=== PATIENT | female | born 1980 | race Two or more races ===

== ENCOUNTER 2024-06-11 09:59 | Outpatient (AMB) | payer MEDICAID, SELFPAY ==
[2024-06-11 10:08] VITALS: BP 126/85; PULSE 87; RESP 19; TEMP 36.8; O2SAT 98; BMI 27.4
--- NOTE | 2024-06-11 10:08 | PD.GSCLVISIT ---
Vital Signs - [facility] 06/11/24 10:08 Height 1.5 m Height Method Stated Weight 61.717 kg Weight Measurement Method Standing Scale BMI 27.4 BP 126/85 H Blood Pressure Source Automatic Cuff Blood Pressure Location Left Upper Arm Position Sitting Respiration 19 Pulse 87 Pulse Source Monitor Temp 98.2 F Temp Source Temporal Artery Scan Pulse Oximetry (%) 98 Oxygen Delivery Method Room Air Med/Allergies Allergies & Medications Allergies No Known Allergies Allergy (Verified 06/11/24 10:10) Medication Reconciliation Unobtainable 06/11/24 [History Confirmed 06/11/24] MA Intake Visit Data Collection New Patient or Established: New Patient (never been to [facility]) Seen by Clinical Staff ONLY (RN/MA): No Reason for Visit:: HEMORRHOIDS Pain Present Currently: No Pain scale:: 4 Field Pipelines Supervisor Required: Yes PCP or OBGYN visit in last 3 months: Yes Hx Now: No Do You Feel Safe at Home: Yes Authorities Contacted: N/A Smoking Status Smoking Status: Never smoker Immunization / Flu Flu Vaccine in the Last 12 Months: No Flu Vaccine Exclusion Criteria: Refused by Patient Past Medical History Social History SMOKING STATUS: Smoking status: Never smoker HPI HPI Narrative 44F presenting with symptomatic hemorrhoids. Pt reports she has had symptoms since last year, with pain, bleeding, and tenesmus. She states her BMs tend to be soft without straining, she uses colace and miralax daily and drinks about 4 bottles of water daily (feels that she has to urinate too much when she drinks more). Pt does state she sometimes has pencil thin stools, but denies any abdominal pain, anorexia and unintentional weight loss. She has uses hydrocortisone suppositories, preparation H and sitz baths, woith some improvement but she still overall feels the symptoms are very bothersome. She has not yet had a colonoscopy PMH: HTN, hemorrhoids PSHx: Csection Meds: Colace, miralax, lisinopril-HCTZ, phentermine and metformin for weight loss Allergies: NKDA Social hx: Nonsmoker Family hx: No known malignancies ROS Review of Systems Systems Reviewed: All systems reviewed, normal except as documented Objective/Exam General General Appearance: alert, cooperative and well groomed Resp Respiratory exam: Absent respiratory distress Rectal Rectal exam: Present hemorrhoids (external hemorrhoids. MALA no mass palpated, anoscopy not tolerated) Assessment & Plan Diagnosis / Problem List (1) Hemorrhoids with complication: Status: Acute Assessment & Plan: 44F with symptomatic hemorrhoids refractory to conservative management. Given the degree of her symptoms after using numerous remedies I explained that surgery is reasonable; I explained risks including severe pain, difficulty urinating, and hemorrhoid persistence/recurrence. Also because of her changes in bowel habits I recommended colonoscopy simultaneously and explained benefits/risks including bleeding, perforation requiring emergency surgery and the possibility of aborting for safety. 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
== END 2024-06-11 11:03 | disposition home or self-care (01) ==
LOC: HODSRG 09:59
PROVIDERS: PCP Nurse Practitioner Family; Referring Provider Nurse Practitioner Family; Supervising Provider Surgery; Visit Provider Surgery
DX: K64.8 Other hemorrhoids (principal)
CPT/HCPCS: 99203; G0463

== ENCOUNTER 2024-07-01 05:35 | Day surgery (SDC) | payer MEDICAID, SELFPAY ==
[2024-06-30 09:48] VITALS: BMI 27.6
--- NOTE | 2024-06-30 10:19 | EKG_ITS ---
[facility] Test Date: 2024-06-30 Pat Name: SEAN HEART Department: Room: - Gender: Female Manager Programs: RD : 1980 Requested By: Blake Forbes Order Number: [id number] Reading MD: Blake Forbes Measurements Intervals [place] Rate: 75 P: 54 WA: 158 QRS: 29 QRSD: 89 T: 47 QT: 359 QTc: 403 Interpretive Statements SINUS RHYTHM POSSIBLE LEFT ATRIAL ENLARGEMENT POSSIBLE RIGHT VENTRICULAR CONDUCTION DELAY SEPTAL MYOCARDIAL INFARCTION , OF INDETERMINATE AGE No previous ECG available for comparison /[id number]/[id number]
[2024-06-30 12:36] LABS: Basophils # (Auto) 0.1 Thou/mm3 (0.0-0.2); Basophils % (Auto) 1 % (0-2.5); Eosinophils # (Auto) 0.1 Thou/mm3 (0.0-0.5); Eosinophils % (Auto) 1 % (0-10); Hematocrit 36.4 % (36.0-46.0); Hemoglobin 12.1 g/dL (12.0-16.0); Immature Granulocytes % (Auto) 0 % (0-0); Immature Granulocytes Auto 0.01 Thou/mm3 (0.00-0.00); Lymphocytes # (Auto) 2.1 Thou/mm3 (1.0-4.8); Lymphocytes % (Auto) 31 % (10-50); Mean Corpuscular HGB Conc 33.2 g/dl (31.0-37.0); Mean Corpuscular Hemoglobin 29.7 pg (25.0-35.0); Mean Corpuscular Volume 89 fL (80-100); Monocytes # (Auto) 0.5 Thou/mm3 (0.0-0.8); Monocytes % (Auto) 7 % (0-12); Neutrophils # (Auto) 4.1 Thou/mm3 (1.8-7.7); Neutrophils % (Auto) 60 % (37-80); Nucleated Red Blood Cell % 0 /100 WBC (0); Platelet Count 330 Thou/mm3 (140-440); RDW Standard Deviation 45.1 fL (36.4-46.3); Red Blood Count 4.07 Miln/mm3 (4.00-5.20); White Blood Count 6.8 Thou/mm3 (3.6-11.0)
[2024-06-30 12:45] LABS: Alanine Aminotransferase 11 U/L (10-49); Albumin, Serum 4.7 gm/dL (3.5-5.0); Albumin/Globulin Ratio 1.7 (1.2-2.2); Alkaline Phosphatase 78 U/L (46-116); Anion Gap 4 (7-16); Aspartate Amino Transferase 18 U/L (0-34); BUN/Creatinine Ratio 21 Ratio (12-20); Bilirubin,Total 0.3 mg/dL (0.3-1.2); Blood Urea Nitrogen 15 mg/dL (9-23); Carbon Dioxide 30.1 mMol/L (20.0-31.0); Chloride 105 mMol/L (98-107); Creatinine (Component) 0.7 mg/dL (0.6-1.3); Estimated Creatinine Clearance 83.1 mL/min (>60); Globulin 2.7 gm/dL (2.3-3.5); Glucose 102 mg/dL (74-106); Osmolality,Calculated 278 (275-295); Sodium 139 mMol/L (136-145); Total Protein 7.4 gm/dL (5.7-8.2); eGFR > 60 See Note
[2024-06-30 12:52] LABS: INR 0.9 (0.9-1.3); Partial Thromboplastin Time 25.9 Seconds (22.0-36.0); Prothrombin Time 10.4 Seconds (9.0-12.2)
[2024-07-01] VITALS (20 sets, daily range): BP systolic 83–114; BP diastolic 52–81; PULSE 58–84; RESP 12–20; TEMP 36.1–36.4; O2SAT 97–100; BMI 27.3
[2024-07-01] MEDS: RINGERS LACTATED 1000 ML 1,000 ML 20 ML IV (06:39)
--- NOTE | 2024-07-01 09:02 | ESOP_ITS ---
Date of Procedure 07/01/24 Pre Op Diagnosis Symptomatic hemorrhoids Post Op Diagnosis Same Procedure Transanal hemorrhoidal dearterialization Findings Internal and external hemorrhoids Procedure Description After discussion of risks and benefits, pt was brought to OR, SCDs were placed and general anesthesia was induced with LMA. After timeout pt first underwent colonoscopy which was dictated separately. After colonoscopy pt was transferred to OR table in lithotomy position with proper padding and was prepped and draped in the usual sterile fashion. THD was undertaken at the 1, 3, 5, 7, 9 and 11 o' clock positions. For the external hemorrhoids pt also had mucopexy performed at the 3, 5 and 7 o' clock positions. Left and right pudendal nerve blocks were performed as well as a local block with 30cc of 0.5% marcaine. There was no bleeding at the end of the case. Pt was returned to supine position and extubated without complication. She was brought to PACU in stable condition Pathology / specimen None Estimated Blood Loss 25 Surgeon Aracelis Arellano MD Surgical Staff Operation Date: 07/01/24 07:30 Case Staff CUE WORKER: Lele Lombardi RNoperations representative: Perla Case
--- NOTE | 2024-07-01 09:03 | SUR.PHASEI ---
0903: Pt. arrived with oral airway in place, vitals stable, breathing unlabored, no signs of distress, dressing to rectum CDI, no active bleed noted, report received from Lele TIMMONS and Delfin VERMA.
--- NOTE | 2024-07-01 09:07 | ESDS_ITS ---
Planned Discharge Date 07/01/24 DS: Providers Provider Primary care physician: KATELYN Austin Attending Provider on Admission: Aracelis Arellano MD Attending Provider on DC: Aracelis Arellano MD Discharging Provider: Aracelis Arellano MD Diagnosis Discharge Diagnosis (1) Hemorrhoids with complication: Status: Acute Problem List Completed Was Problem List Reviewed/Reconciled?: Yes Hospital Course Patient presented with symptomatic hemorrhoids for planned colonoscopy and THD. Both procedures were undertaken without complication and patient is appropriate for discharge home Exam Vital Signs Temp Pulse Resp BP Pulse Ox 97.4 F 74 14 114/75 100 07/01/24 06:30 07/01/24 06:30 07/01/24 06:30 07/01/24 06:30 07/01/24 06:30 Discharge Plan Plan Patient Disposition: HOME (Self Care) Prescriptions/Referrals Prescriptions/Med Rec: New oxycodone-acetaminophen [Percocet] 5-325 mg tablet 1 tab PO Q6H MDD 6 tabs PRN (Reason: pain) Qty: 30 0RF ibuprofen 600 mg tablet 600 mg PO Q6H PRN (Reason: pain) Qty: 30 0RF docusate sodium [Colace] 100 mg capsule 100 mg PO BID PRN (Reason: constipation) Qty: 60 0RF No Action polyethylene glycol 3350 [Powderlax] 17 gram/dose powder 4 g PO QDAY lisinopril-hydrochlorothiazide [Zestoretic] 20-25 mg tablet 1 tab PO QDAY naproxen 500 mg tablet 500 mg PO Q12H PRN (Reason: pain) docusate sodium 100 mg capsule 100 mg PO QDAY omega-3 fatty acids Capsule 1,000 mg PO QDAY hydrocodone-acetaminophen 5-325 mg tablet 1 tab PO Q6H PRN (Reason: pain) metformin 500 mg tablet 500 mg PO BID phentermine 37.5 mg capsule 37.5 mg PO QAM Rx Instructions: must administer 30 minutes before or 1-2 hours after breakfast Referrals: Aracelis Arellano MD [Physician] - (You will receive a phone call to confirm a follow-up appointment with me in 6 weeks) Janel Simms FNP [Primary Care Provider] - Patient/Caregiver Discharge Instructions Other Discharge Activity Instructions:: You may resume sitz baths as needed tomorrow 07/02 Avoid constipation and diarrhea Drink plenty of water and maintain a high-fiber diet I recommend taking the Percocet and ibuprofen staggered every 6 hours so that you are taking one of them every 3 hours, if needed for severe pain If you develop severe pain not controlled by medications, bleeding that does not stop, fever or difficulty urinating please seek care in ER Education Materials: Colonoscopy, Discharge Instructions for ... Print Language: Kinyarwanda Stand Alone Forms: Jessy Award Info., Patient Portal Info Letter Discharge Order Discharge Orders: Discharge (Routine); Ordered 07/01/24 Ordered By: Aracelis Arellano Results Results: Laboratory Laboratory results: results reviewed Procedures Procedure Date 07/01/24 Procedures Diagnostic colonoscopy, transanal hemorrhoidal dearterialization
[2024-07-01] MEDS: fentaNYL CIT INJ 50 mCg/ML AMP 2ML IV ×3 (09:11→09:29)
[2024-07-01] MEDS: TAMSULOSIN HCL 0.4 MG CAPSULE PO (09:29)
[2024-07-01] MEDS: HYDROmorphone INJ 2 MG/ML VIAL 0.5 MG IV (09:52)
--- NOTE | 2024-07-01 10:26 | SUR.PHASEII ---
Pt. Hypotensive, notified Lele TIMMONS. Per Lele TIMMONS give pt. 500ml bolus of LR, hold off on pain medications until he comes and assess pt. Also waiting for pt. to void, per MD Arellano, don't send pt. home until she voids.
[2024-07-01] MEDS: oxyCODONE/APAP 5/325 TABLET 1 TAB PO ×2 (11:03→14:53)
--- NOTE | 2024-07-01 12:42 | SUR.PHASEII ---
1235 patient is awake, alert, breathing unlabored, dressing dry with no active bleeding, report received from Farnaz VERMA, patient needs to void before going home.
--- NOTE | 2024-07-01 13:12 | SUR.PHASEII ---
1312 patient ambulated to bathroom unable to void at this time, report given to Farnaz VERMA
--- NOTE | 2024-07-01 15:00 | SUR.PHASEII ---
1500: Pt. AAOx4, vitals stable, breathing unlabored, complaint of pain, gave pain medication prior to DC. Dressing to rectum CDI, no active bleed noted, pt. tolerated sips of water well, pt. ambulated to wheelchair with steady gait and no assist, no complications. Gave discharge instructions to the pt. and her ride, both verbalized understanding and had no further questions. Pt. left with all personal belongings. Pt. was unable to void on her own, notified MD Arellano, per MD Arellano straight cath the pt. and send home. Pt. tolerated straight cath well, 300ml of clear yellow urine drained. Advised pt. that if she is still unable to urinate at home, go to the ER for carrillo catheter per MD Monroy instructions. Pt. verbalized understanding.
== END 2024-07-01 15:00 | disposition home or self-care (01) ==
PROVIDERS: Anesthesiology; PCP Nurse Practitioner Family; Referring Provider Surgery; Visit Provider Surgery
PROC: (CPT 46948; principal; 2024-07-01 07:30)
PROC: 0DJD8ZZ Inspection of Lower Intestinal Tract, Via Natural or Artificial Opening Endoscopic (ICD-10-PCS; CPT 45378; 2024-07-01 07:30)
DX: K64.8 Other hemorrhoids (principal); K64.4 Residual hemorrhoidal skin tags; Z01.810 Encounter for preprocedural cardiovascular examination
CPT/HCPCS: 45378; 36415; 80048; 80053; 85025; 85610; 85730; 93005; A4217; A4649; J0131; J1885; J2371; J2704; J3010; J3490; J7120; A9270; J1596

== ENCOUNTER 2024-07-12 13:51 | Day surgery (SDC) | payer MEDICAID, SELFPAY ==
[2024-07-12 13:53] VITALS: BMI 27.2
[2024-07-12 14:25] VITALS: BP 102/70; PULSE 93; RESP 18; TEMP 36.8; O2SAT 96
--- NOTE | 2024-07-12 14:31 | XR_ITS ---
Examination: CT abdomen and pelvis without contrast. Coronal 3-D reconstructions. Sagittal 2-D reconstructions. Date and time of exam:July 12, 2024 1519 hrs. Indications: Onset rectal bleeding today and beginning 3 days ago CTDI: vol (mGy): 6.31 DLP: (mGycm): 356 Technique: Axial images of the abdomen have been obtained, 3 mm slice thickness Intravenous contrast material has not been administered. Low dose protocols were performed. One or more of the following dose reduction techniques were used; automated exposure control, adjustment of the mA and/or KV according to patient size, use of iterative reconstruction technique. Findings: No focal liver or splenic lesions Contracted gallbladder No pancreatic or adrenal mass No renal or ureteral calculi, no hydronephrosis 24 mm fat-containing umbilical hernia Aorta normal size Normal appendix No diverticulitis Abundant stool in the rectum with thickening the rectal wall Mild thickening of the urinary bladder wall Impression: Abundant stool in the rectum with thickening of the rectal wall, differential would include proctitis If rectal bleeding persists, consider colonoscopy follow-up
--- NOTE | 2024-07-12 14:32 | PD.EDRME ---
Rapid Medical Screening Exam E Arrival date/time: 07/12/24 13:51 44-year-old female with history of hypertension presents to the emergency room with a chief complaint of 10 out of 10 rectal pain. Patient states she had a colonoscopy as well as hemorrhoidectomy on 01 July. Patient states as of 3 days ago she began developing severe pelvic pain and blood in the stool. I have greeted and performed a focused initial assessment of this patient. A comprehensive ED assessment and evaluation of the patient, analysis of all test results, and completion of the medical decision making process will be conducted by additional ED providers. Chief Complaint: Urogenital-Female Vital signs: Vital Signs Temperature 98.2 F 07/12/24 14:25 Pulse Rate 93 07/12/24 14:25 Respiratory Rate 18 07/12/24 14:25 Blood Pressure 102/70 07/12/24 14:25 Pulse Oximetry (%) 96 07/12/24 14:25 Oxygen Delivery Method Room Air 07/12/24 14:25 Vital signs reviewed by provider: Yes
[2024-07-12 14:55] LABS: Collection Type, Urine Clean Catch
[2024-07-12 15:19] LABS: Bacteria,Urine 2+; Bilirubin,Urine Negative (Negative); Blood,Urine Trace (Negative); Clarity,Urine Turbid (Clear/Hazy); Glucose, Urine Negative (Negative); Ketones,Urine Negative (Negative); Leukocyte Esterase,Urine Positive (Negative); Nitrite,Urine Positive (Negative); Protein,Urine Trace (Neg - Trace); RBC,Urine 7 /hpf (0-3); Specific Gravity,Urine 1.012 (1.001-1.035); Squamous Epithelial Cell,Urine 6 /hpf (0-5); Transitional Epi Cells,Urine < 1 /hpf (0-5); Urobilinogen,Urine Negative mg/dL (0.0-1.0); WBC,Urine 553 /hpf (0-5)
[2024-07-12 15:20] LABS: Color,Urine Yellow (Lt Yel-Yel); Culture Indicated,Urine Yes
[2024-07-12] MEDS: HYDROcodone/APAP 5/325 TABLET 1 TAB PO (15:57)
[2024-07-12 15:59] LABS: Basophils % (Auto) 0 % (0-2.5); Eosinophils # (Auto) 0.1 Thou/mm3 (0.0-0.5); Eosinophils % (Auto) 1 % (0-10); Hematocrit 34.7 % (36.0-46.0); Hemoglobin 11.5 g/dL (12.0-16.0); Immature Granulocytes % (Auto) 0 % (0-0); Immature Granulocytes Auto 0.05 Thou/mm3 (0.00-0.00); Lymphocytes # (Auto) 1.8 Thou/mm3 (1.0-4.8); Lymphocytes % (Auto) 15 % (10-50); Mean Corpuscular HGB Conc 33.1 g/dl (31.0-37.0); Mean Corpuscular Hemoglobin 29.1 pg (25.0-35.0); Mean Corpuscular Volume 88 fL (80-100); Monocytes # (Auto) 0.7 Thou/mm3 (0.0-0.8); Monocytes % (Auto) 6 % (0-12); Neutrophils # (Auto) 9.6 Thou/mm3 (1.8-7.7); Neutrophils % (Auto) 78 % (37-80); Nucleated Red Blood Cell % 0 /100 WBC (0); Platelet Count 507 Thou/mm3 (140-440); RDW Standard Deviation 43.4 fL (36.4-46.3); Red Blood Count 3.95 Miln/mm3 (4.00-5.20); White Blood Count 12.3 Thou/mm3 (3.6-11.0)
[2024-07-12 16:10] LABS: Partial Thromboplastin Time 25.1 Seconds (22.0-36.0); Prothrombin Time 11.2 Seconds (9.0-12.2)
[2024-07-12 16:13] LABS: Alanine Aminotransferase 19 U/L (10-49); Albumin, Serum 4.7 gm/dL (3.5-5.0); Albumin/Globulin Ratio 1.6 (1.2-2.2); Alkaline Phosphatase 87 U/L (46-116); Anion Gap 10 (7-16); Aspartate Amino Transferase 13 U/L (0-34); BUN/Creatinine Ratio 23 Ratio (12-20); Bilirubin,Total 0.3 mg/dL (0.3-1.2); Blood Urea Nitrogen 16 mg/dL (9-23); Calcium 9.8 mg/dL (8.3-10.6); Calcium (Corrected) 9.8 mg/dL (8.5-10.1); Carbon Dioxide 26.3 mMol/L (20.0-31.0); Chloride 103 mMol/L (98-107); Creatinine (Component) 0.7 mg/dL (0.6-1.3); Estimated Creatinine Clearance 82.5 mL/min (>60); Glucose 118 mg/dL (74-106); Osmolality,Calculated 279 (275-295); Potassium 4.2 mMol/L (3.4-5.1); Sodium 139 mMol/L (136-145); Total Protein 7.7 gm/dL (5.7-8.2); eGFR > 60 See Note
[2024-07-12 16:19] VITALS: BP 109/73; PULSE 87; RESP 16; TEMP 36.8; O2SAT 99
--- NOTE | 2024-07-12 18:11 | PC.NURSE ---
pt here with at bedside pt came in due to rectal pain, swelling, pt states she is passing blood with BM as well as clots and its has a foul smell. 07/01/2024 pt had hemorrhoid removal with colonoscopy. pt states pain and bleeding started 07/10/2024. pt is AAOX4 pt is compliant pt states she is in pain and is in tears. laying on her side.
[2024-07-12 18:15] VITALS: BP 109/71; PULSE 76; RESP 17; TEMP 36.9; O2SAT 100
--- NOTE | 2024-07-12 18:42 | PD.EDADULT ---
ED General RME/HPI General Chief complaint: General Adult/Misc Complain Stated complaint: Colonoscopy/surgery 07/01: Pain, Bleeding today Time Seen by Provider: 07/12/24 18:47 Source: patient Arrival date/time: 07/12/24 13:51 Mode of arrival: ambulatory Limitations: no limitations RME / HPI RME / HPI narrative: 07/12/24 13:51 44-year-old female with history of hypertension presents to the emergency room with a chief complaint of 10 out of 10 rectal pain. Patient states she had a colonoscopy as well as hemorrhoidectomy on 01 July. Patient states as of 3 days ago she began developing severe pelvic pain and blood in the stool. I have greeted and performed a focused initial assessment of this patient. A comprehensive ED assessment and evaluation of the patient, analysis of all test results, and completion of the medical decision making process will be conducted by additional ED providers. DR RODRIGUEZ MAIN ED EVALUATION: 44-year-old female with a history of hypertension, presenting to the Emergency Department with severe rectal pain, rated 10/10 in intensity. She reports that she underwent a colonoscopy and hemorrhoidectomy on July 01, and initially, her recovery was uneventful. However, approximately three days ago, she began experiencing severe rectal pain accompanied by blood in the stool. Related Data Home Medications ?Medication ?Instructions ?Recorded ?Confirmed docusate sodium 100 mg capsule 100 mg PO QDAY 06/30/24 07/01/24 hydrocodone 5 mg-acetaminophen 325 1 tab PO Q6H PRN pain 06/30/24 07/01/24 mg tablet lisinopril 20 1 tab PO QDAY 06/30/24 07/01/24 mg-hydrochlorothiazide 25 mg tablet (Zestoretic) metformin 500 mg tablet 500 mg PO BID 06/30/24 07/01/24 naproxen 500 mg tablet 500 mg PO Q12H PRN pain 06/30/24 07/01/24 omega-3 fatty acids 1,000 mg PO QDAY 06/30/24 07/01/24 phentermine 37.5 mg capsule 37.5 mg PO QAM 06/30/24 07/01/24 polyethylene glycol 3350 17 4 g PO QDAY 06/30/24 07/01/24 gram/dose oral powder (Powderlax) Previous Rx's ?Medication ?Instructions ?Recorded docusate sodium 100 mg capsule 100 mg PO BID PRN constipation #60 07/01/24 (Colace) caps ibuprofen 600 mg tablet 600 mg PO Q6H PRN pain #30 tabs 07/01/24 oxycodone-acetaminophen 5 mg-325 1 tab PO Q6H PRN pain #30 tabs 07/01/24 mg tablet (Percocet) amoxicillin 875 mg-potassium 1 tab PO BID perianal abscess #8 07/13/24 clavulanate 125 mg tablet tabs oxycodone-acetaminophen 5 mg-325 1 tab PO Q6H PRN pain #30 tabs 25 mg tablet (Percocet) Allergies Allergy/AdvReac Type Severity Reaction Status Date / Time No Known Allergies Allergy Verified 07/01/24 12:41 Review of Systems Review of Systems Systems Reviewed: All systems reviewed, normal except as documented Past Medical History Past Medical History NEUROLOGIC: Negative Neurological Disorders or Seizures CARDIAC: Positive Cardiac Disorders and Hypertension; Negative Congestive Heart Failure RESPIRATORY: Negative Chronic Obstructive Pulmonary Disease (COPD) GASTROINTESTINAL: Positive Gastrointestinal Disorders and Hemorrhoids; Negative Hepatitis GENITOURINARY: Negative Genitourinary Disorders or Renal Disease REPRODUCTIVE: Positive Previous Pregnancies (5) MUSCULOSKELETAL: Negative Musculoskeletal Disorders ENDOCRINE: Negative Endocrine Disorders, Diabetes Mellitus Type 1 or Diabetes Mellitus Type 2 HEMATOLOGIC: Negative Blood Disorders OTHER HISTORY: Positive Hospitalization (); Negative Autoimmune Disease, Shingles, Blood Transfusions, Blood Transfusion Reaction, Anesthesia Reactions or Cancer Family History FAMILY HISTORY: Positive Family Cardiac Disorders; Negative Family Psychiatric Problems, Family Respiratory Disorders, Family Gastrointestinal Problems, Family Cancer, Family Surgery or Family Anesthesia Reaction Surgical History SURGICAL: Positive Tubal Ligation and Section (5) Social History SMOKING STATUS: Never smoker ED Exam Narrative Physical exam: GENERAL APPEARANCE: alert and oriented x 4, well-developed, well-nourished, no acute distress VITALS: All vitals were reviewed and the pulse ox is 100% on room air, which is normal according to my interpretation. HEENT: Normocephalic, atraumatic; pupils equal, round, reactive to light; EOMI; mucous membranes pink, moist; oropharynx clear NECK: Supple LUNGS: CTABL; no wheezes, no rales, no rhonchi HEART: Regular rate, regular rhythm; normal S1, S2; no murmurs ABDOMEN: non distended; normal BS; soft, no tenderness, no guarding, no rebound; no masses, no organomegaly, no hernia BACK: no CVA tenderness EXTREMITIES: atraumatic; no edema NEUROLOGIC: awake; alert and oriented x4; cranial nerves II-XII grossly intact; no focal sensory or motor deficits PSYCHIATRIC: appropriate mood and affect SKIN: warm, dry, normal color; no rashes General Limitations: Present no limitations Course Quality Measures none Orders Category Date Time Status CT abdomen pelvis wo con Stat Exams 07/12/24 14:31 Completed CBC Stat Lab 07/12/24 14:52 Completed CMP [Comprehensive Metabolic Panel] Stat Lab 07/12/24 14:52 Completed PT [Prothrombin Time with INR] Stat Lab 07/12/24 14:52 Completed PTT [Partial Thromboplastin Time] Stat Lab 07/12/24 14:52 Completed Type and Screen Stat Lab 07/12/24 14:52 Completed UA, C/S IF [Urinalysis, C/S if Indicated] Stat Lab 07/12/24 14:49 Completed Urine Culture Stat Lab 07/12/24 14:49 Received HYDROcodone*/APAP 5/325 [[place] 5/325] Med 07/12/24 15:36 Discontinued 1 tab PO X1 ONE HYDROmorphone INJ [Dilaudid Inj] Med 07/13/24 04:47 Discontinued 1 mg IVP X1 ONE Lidocaine 2% Viscous [Xylocaine 2% Viscous] Med 07/12/24 18:35 Discontinued 15 ml TOP X1 ONE Morphine Inj Med 07/12/24 18:25 Discontinued 5 mg IVP X1 ONE Morphine Inj Med 07/12/24 21:32 Discontinued 5 mg IVP X1 ONE Ondansetron Inj [Zofran Inj] Med 07/12/24 18:25 Discontinued 4 mg IV X1 ONE Ondansetron Inj [Zofran Inj] Med 07/12/24 21:32 Discontinued 4 mg IV X1 ONE Piper/Tazo Inj [Zosyn Inj] 3.375 gm Med 07/12/24 23:04 Discontinued SODIUM CHLORIDE 0.9% (Popper) [NS 0.9% (Popper)] 50 ml IV X1 Sodium Chloride 0.9% 1000 ml [Ns] 1,000 ml Med 07/12/24 18:26 Discontinued IV 999 mls/hr Vital Signs Vital signs: Vital Signs Temperature 98.2 F 07/12/24 14:25 Pulse Rate 93 07/12/24 14:25 Respiratory Rate 18 07/12/24 14:25 Blood Pressure 102/70 07/12/24 14:25 Pulse Oximetry (%) 96 07/12/24 14:25 Oxygen Delivery Method Room Air 07/12/24 14:25 [facility] Patient data External records reviewed:: [facility] previous records Clinical information provided by:: patient Social determinants that could affect healthcare access:: none Patient has the following chronic illnesses:: see PMH How is presenting disease/condition affected by chronic disease/condition?: uneffected by Evaluation data The following diagnostics were reviewed and interpreted by me:: lab results and radiology exam(s) Lab and/or radiology exams considered but not ordered:: na Interpretation Summary: I personally reviewed the radiology data and agree with the radiologist's interpretation. Examination: CT abdomen and pelvis without contrast. Date and time of exam:July 12, 2024 1519 hrs. Indications: Onset rectal bleeding today and beginning 3 days ago Findings: No focal liver or splenic lesions Contracted gallbladder No pancreatic or adrenal mass No renal or ureteral calculi, no hydronephrosis 24 mm fat-containing umbilical hernia Aorta normal size Normal appendix No diverticulitis Abundant stool in the rectum with thickening the rectal wall Mild thickening of the urinary bladder wall Impression: Abundant stool in the rectum with thickening of the rectal wall, differential would include proctitis If rectal bleeding persists, consider colonoscopy follow-up Dictated By: Lele Brody MD Medications Medications considered but not ordered:: na Medication administrations:: Medication Administration History Discontinued Medications Acetaminophen (Acetaminophen 325 Mg Tablet) 650 mg PO Q6H PRN PRN Reason: PAIN SCALE 1-3 (mild Stop: 08/12/24 08:27 Hydrocodone Bitart/Acetaminophen (Hydrocodone/Apap 5/325 Tablet) 1 tab PO X1 ONE Stop: 07/12/24 15:37 Last Admin: 07/12/24 15:57 Dose: 1 tab Documented By: BRAD Hydrocodone Bitart/Acetaminophen (Hydrocodone/Apap 5/325 Tablet) 1 tab PO Q4H PRN PRN Reason: PAIN SCALE 7-10 (Severe Stop: 07/18/24 08:27 Bupivacaine HCl (Bupivacaine Mpf 0.5% 10 Ml Vial) Confirm Administered Dose 20 ml .ROUTE .STK-MED ONE Stop: 07/13/24 11:50 Cefoxitin Sodium (Cefoxitin Sod Inj 1 Gm Vial) Confirm Administered Dose 1 gm .ROUTE .STK-MED ONE Stop: 07/13/24 11:24 Cefoxitin Sodium (Cefoxitin Sod Inj 1 Gm Vial) Confirm Administered Dose 1 gm .ROUTE .STK-MED ONE Stop: 07/13/24 11:26 Docusate Sodium (Docusate Sod 100 Mg Capsule) 100 mg PO DAILY [facility]; Protocol Stop: 08/12/24 08:59 Last Admin: 07/13/24 10:12 Dose: 100 mg Documented By: MELISSA Fentanyl Citrate (Fentanyl Cit Inj 50 Mcg/Ml Amp 2ml) Confirm Administered Dose 100 mcg .ROUTE .STK-MED ONE Stop: 07/13/24 10:48 Fentanyl Citrate (Fentanyl Cit Inj 50 Mcg/Ml Amp 2ml) 25 mcg IV Q5M PRN; Protocol PRN Reason: PAIN SCALE 7-10 (Severe Stop: 07/13/24 13:46 Fentanyl Citrate (Fentanyl Cit Inj 50 Mcg/Ml Amp 2ml) 25 mcg IV Q5M PRN; Protocol PRN Reason: PAIN SCALE 4-6 (Moderate Stop: 07/13/24 13:46 Last Admin: 07/13/24 12:46 Dose: 25 mcg Documented By: EDVIN Fentanyl Citrate (Fentanyl Cit Inj 50 Mcg/Ml Amp 2ml) 25 mcg IV Q5M PRN; Protocol PRN Reason: PAIN SCALE 1-3 (mild Stop: 07/13/24 13:46 Hydromorphone HCl (Hydromorphone Inj 2 Mg/Ml Vial) 1 mg IVP X1 ONE Stop: 07/13/24 04:48 Last Admin: 07/13/24 04:53 Dose: 1 mg Documented By: MELISSA Sodium Chloride (Ns) 1,000 mls @ 999 mls/hr IV .Q1H1M ONE Stop: 07/12/24 19:26 Last Infusion: 07/12/24 21:28 Dose: Infused Documented By: Admin: 07/12/24 18:44 Dose: 999 mls/hr Documented By: GENET Piperacillin Sod/Tazobactam (Sod 3.375 gm/ Sodium Chloride) 50 mls @ 100 mls/hr IV X1 ONE Stop: 07/12/24 23:33 Last Infusion: 07/12/24 23:51 Dose: Infused Documented By: Admin: 07/12/24 23:16 Dose: 100 mls/hr Documented By: MELISSA Sodium Chloride (Ns) 1,000 mls @ 125 mls/hr IV .Q8H [facility] Stop: 08/12/24 08:29 Last Admin: 07/13/24 08:47 Dose: 125 mls/hr Documented By: MELISSA Piperacillin Sod/Tazobactam (Sod 3.375 gm/ Sodium Chloride) 50 mls @ 12.5 mls/hr IV Q8H [facility] Stop: 07/20/24 12:59 Piperacillin Sod/Tazobactam (Sod 3.375 gm/ Sodium Chloride) 50 mls @ 100 mls/hr IV X1 [facility] Stop: 07/20/24 08:44 Ketorolac Tromethamine (Ketorolac Inj 30 Mg/Ml Vial) 15 mg IVP Q6H PRN PRN Reason: PAIN SCALE 4-6 (Moderate Stop: 07/18/24 08:27 Ketorolac Tromethamine (Ketorolac Inj 30 Mg/Ml Vial) Confirm Administered Dose 30 mg .ROUTE .STK-MED ONE Stop: 07/13/24 11:35 Lidocaine HCl (Lidocaine Viscous 2% 15 Ml Udc) 15 ml TOP X1 ONE Stop: 07/12/24 18:36 Last Admin: 07/12/24 19:47 Dose: 15 ml Documented By: MELISSA Lidocaine HCl (Lidocaine Inj Pf 2% 5 Ml Vial) Confirm Administered Dose 5 ml .ROUTE .STK-MED ONE Stop: 07/13/24 10:48 Metoclopramide HCl (Metoclopramide Inj 5 Mg/Ml Vial 2 Ml) Confirm Administered Dose 10 mg .ROUTE .STK-MED ONE Stop: 07/13/24 10:48 Midazolam HCl (Midazolam Inj 1 Mg/Ml Vial 2 Ml) Confirm Administered Dose 2 mg .ROUTE .STK-MED ONE Stop: 07/13/24 10:48 Morphine Sulfate (Morphine Sulf Inj 10 Mg/Ml Vial) 5 mg IVP X1 ONE Stop: 07/12/24 18:26 Last Admin: 07/12/24 18:43 Dose: 5 mg Documented By: BD Morphine Sulfate (Morphine Sulf Inj 10 Mg/Ml Vial) 5 mg IVP X1 ONE Stop: 07/12/24 21:33 Last Admin: 02/23/25 21:40 Dose: 5 mg Documented By: SF Ondansetron HCl (Ondansetron Inj 2 Mg/Ml Inj 2 Ml) 4 mg IV X1 ONE Stop: 07/12/24 18:26 Last Admin: 07/12/24 18:43 Dose: 4 mg Documented By: BD Ondansetron HCl (Ondansetron Inj 2 Mg/Ml Inj 2 Ml) 4 mg IV X1 ONE Stop: 07/12/24 21:33 Last Admin: 07/12/24 21:40 Dose: 4 mg Documented By: SF Ondansetron HCl (Ondansetron Inj 2 Mg/Ml Inj 2 Ml) Confirm Administered Dose 4 mg .ROUTE .STK-MED ONE Stop: 07/13/24 10:48 Ondansetron HCl (Ondansetron Inj 2 Mg/Ml Inj 2 Ml) 4 mg IV X1 ONE Stop: 07/13/24 11:47 Polyethylene Glycol (Polyethylene Glycol 17 Gm Packet) 17 gm PO BID PRN PRN Reason: CONSTIPATION Stop: 08/12/24 08:59 Propofol (Propofol Inj 10 Mg/Ml Vial 20 Ml) Confirm Administered Dose 200 mg IV .STK-MED ONE Stop: 07/13/24 10:48 Sevoflurane (Sevoflurane 15 Min/Unit Ea) Confirm Administered Dose 15 min INH .STK-MED ONE Stop: 07/13/24 11:40 as above Consultations Consultation(s) initiated? (list below): Yes Consultation #1 (Physician, Specialty, Details): Hospitalist made aware of the patient?s HPI, PMHx, lab and/or radiology results. Treatment plan was discussed. Accepts patient for admission. Diagnosis Differential Diagnosis ED Complaint MDM: rectal prolapse, postop complications, anal fissure Most likely diagnosis given after review of the tests above:: Perianal abscess, Pain, rectal Admission Indicated Admission indicated?: indicated Explain why admission is indicated or not indicated:: Significant findings Admission Request Was there a request for admission?: Yes Admission Attestation Admission request attestation: Discussed case with [] from Hospitalist service regarding admission. Discussed patients ED course, exam findings, labs, and radiology results. The Hospitalist [agrees,declines] to accept the patient for admission. Disposition Plan Disposition Plan: Admit Medical Decision Making MDM Narrative MDM Narrative: 2129 The plan for manual disimpaction was discussed in detail with Dr. Arellano, general surgeon, to ensure appropriateness and safety of the intervention. After careful review, Dr. Arellano approved proceeding with the planned management. The patient was informed of the procedure, including risks, benefits, and expectations, and all questions were answered. We will proceed with manual disimpaction while closely monitoring the patient for any signs of discomfort, complications, or need for further intervention. Scribe Attestation: I, Ana Villalba, am scribing for and in the presence of Dr. Rodriguez. Provider Notation: Although this document has been carefully reviewed, there may still be some phonetic and other typographical errors. These errors are purely grammatical due to imperfections in the software program and should not be construed in any way to compromise the substance of the patient's medical care during this visit. Differential Diagnosis Differential Diagnosis: rectal prolapse, postop complications, anal fissure Lab Data 07/12/24 14:52 07/12/24 14:52 Labs: Lab Results 07/12/24 07/12/24 Range/Units 14:49 14:52 WBC 12.3 H (3.6-11.0) Thou/mm3 RBC 3.95 L (4.00-5.20) Miln/mm3 Hgb 11.5 L (12.0-16.0) g/dL Hct 34.7 L (36.0-46.0) % MCV 88 (80-100) fL MCH 29.1 (25.0-35.0) pg MCHC 33.1 (31.0-37.0) g/dl RDW Std Deviation 43.4 (36.4-46.3) fL Plt Count 507 H D (140-440) Thou/mm3 Neut % (Auto) 78 (37-80) % Lymph % (Auto) 15 (10-50) % Lea % (Auto) 6 (0-12) % Eos % (Auto) 1 (0-10) % Baso % (Auto) 0 (0-2.5) % Neut # (Auto) 9.6 H (1.8-7.7) Thou/mm3 Lymph # (Auto) 1.8 (1.0-4.8) Thou/mm3 Lea # (Auto) 0.7 (0.0-0.8) Thou/mm3 Eos # (Auto) 0.1 (0.0-0.5) Thou/mm3 Baso # (Auto) 0.0 (0.0-0.2) Thou/mm3 Immature Gran # (Auto) 0.05 H (0.00-0.00) Thou/mm3 Absolute Nucleated RBC 0.00 (0.00-0.00) Thou/mm3 Immature Gran % 0 (0-0) % Nucleated RBC % 0 (0) /100 WBC PT 11.2 (9.0-12.2) Seconds INR 1.0 (0.9-1.3) APTT 25.1 (22.0-36.0) Seconds Sodium 139 (136-145) mMol/L Potassium 4.2 (3.4-5.1) mMol/L Chloride 103 (98-107) mMol/L Carbon Dioxide 26.3 (20.0-31.0) mMol/L Anion Gap 10 (7-16) BUN 16 (9-23) mg/dL Creatinine 0.7 (0.6-1.3) mg/dL Estim Creat Clear Calc 82.5 (>60) mL/min eGFR > 60 (60 - ) See Note BUN/Creatinine Ratio 23 H (12-20) Ratio Glucose 118 H (74-106) mg/dL Calculated Osmolality 279 (275-295) Calcium 9.8 (8.3-10.6) mg/dL Corrected Calcium 9.8 (8.5-10.1) mg/dL Total Bilirubin 0.3 (0.3-1.2) mg/dL AST 13 (0-34) U/L ALT 19 (10-49) U/L Alkaline Phosphatase 87 (46-116) U/L Total Protein 7.7 (5.7-8.2) gm/dL Albumin 4.7 (3.5-5.0) gm/dL Globulin 3.0 (2.3-3.5) gm/dL Albumin/Globulin Ratio 1.6 (1.2-2.2) Ur Collection Type Clean Catch Urine Color Yellow (Lt Yel-Yel) Urine Clarity Turbid A (Clear/Hazy) Urine pH 6.0 (5.0-7.0) Ur Specific [place] 1.012 (1.001-1.035) Urine Protein Trace (Neg - Trace) Urine Glucose (UA) Negative (Negative) Urine Ketones Negative (Negative) Urine Blood Trace (Negative) Urine Nitrite Positive (Negative) Urine Bilirubin Negative (Negative) Urine Urobilinogen (Auto) Negative (0.0-1.0) mg/dL Ur Leukocyte Esterase Positive (Negative) Urine RBC 7 H (0-3) /hpf Urine WBC 553 H (0-5) /hpf Ur Squamous Epith Cells 6 H (0-5) /hpf Ur Transition Epith Cell < 1 (0-5) /hpf Urine Bacteria 2+ A (None) Ur Culture Indicated? Yes Blood Type B Positive Antibody Screen NEGATIVE Blood Bank Wristband ID Yes Discharge Plan Plan Patient Disposition: Admit Acute Care w/in Hospital Disposition Comment: Dr Arellano Problem List Clinical Impression: Perianal abscess, Pain, rectal Patient/Caregiver Discharge Instructions Other Activity Instructions:: I placed a drain into the wound on your buttock to allow pus to drain as needed If it falls out, it is not an emergency but if you then develop worsening pain or swelling please seek care in ER You may resume sitz baths as needed up to TID for pain, swelling and itching Avoid constipation and diarrhea Take colace and miralax as needed to maintain soft bowel movements that do not require any straining Coloqu? un drenaje en la herida de cartagena nalga para permitir que el pus drene seg?n sea necesario. Si se , no es hyacinth emergencia, carolina si luego desarrolla dolor o hinchaz?n que empeora, busque atenci?n en la tanner de emergencias. Puede reanudar los ba?os de asiento seg?n sea necesario hasta TID para el dolor, la hinchaz?n y la picaz?n. Sravani el estre?imiento y la diarrea. [place] colace y miralax seg?n sea necesario para mantener deposiciones suaves que no requieran chana?n esfuerzo.
[2024-07-12] MEDS: MORPHINE SULF INJ 10 MG/ML VIAL 5 MG IVP ×2 (18:43→21:40)
[2024-07-12] MEDS: ONDANSETRON INJ 2 MG/ML INJ 2 ML 4 MG IV ×2 (18:43→21:40)
[2024-07-12] MEDS: SODIUM CHLORIDE 0.9% 1000 ML 1,000 ML 999 ML IV (18:44)
[2024-07-12] MEDS: LIDOCAINE VISCOUS 2% 15 ML UDC TOP (19:47)
[2024-07-12 21:04] VITALS: BP 113/70; PULSE 84; RESP 16; TEMP 37.2; O2SAT 99
--- NOTE | 2024-07-12 21:31 | PC.NURSE ---
Pt c/o pain on her neck states shes has had previous surgery, when asked what she takes for pain she states she wont tell us anything. She is asking for us to call the trial mgr and she needs her preparatory technician. This senior underwriter has reiterated several times the trial mgr put her on a safety hold due to her SI and she continues to cuss this senior underwriter out stating she will ramon me . Pt has taken her ring off and tried to write on the window and continues to bang on the glass window with a closed fist. we have tried to redirect but pt is overly active at the moment
[2024-07-12 23:00] VITALS: BP 108/60; PULSE 75; RESP 14; O2SAT 99
[2024-07-12] MEDS: PIPER/TAZO INJ 3.375 GM in SODIUM CHLORIDE 0.9% (Popper) 50 ML IV (23:16)
[2024-07-13] VITALS (12 sets, daily range): BP systolic 99–122; BP diastolic 47–71; PULSE 60–79; RESP 14–18; TEMP 36.2–37.2; O2SAT 97–100
[2024-07-13] MEDS: HYDROmorphone INJ 2 MG/ML VIAL 1 MG IVP (04:53)
[2024-07-13] MEDS: SODIUM CHLORIDE 0.9% 1000 ML 1,000 ML 125 ML IV (08:47)
[2024-07-13] MEDS: DOCUSATE SOD 100 MG CAPSULE PO (10:12)
--- NOTE | 2024-07-13 10:12 | PD.SURHP ---
HPI Date of Admission 07/13/24 08:28 HPI 44F with HTN, DM who presented with symptomatic hemorrhoids s/p THD 07/01/24 who presented with severe pain. Pt reports she had been feeling well overall until two days ago, when she felt pain and swelling in the perianal region. She had been having some constipation and was taking colace but not miralax. In ER pt underwent CT read as fecal impaction, underwent MALA with return of copious pus. Pt reports pain is ongoing but denies any fever or malaise Review of Systems Review of Systems ROS Unobtainable: All systems reviewed & no additional complaints except as documented Meds Home Medications and Allergies Home Medications ?Medication ?Instructions ?Recorded ?Confirmed ?Type docusate sodium 100 mg capsule 100 mg PO QDAY 06/30/24 07/01/24 History hydrocodone 5 mg-acetaminophen 325 1 tab PO Q6H PRN pain 06/30/24 07/01/24 History mg tablet lisinopril 20 1 tab PO QDAY 06/30/24 07/01/24 History mg-hydrochlorothiazide 25 mg tablet (Zestoretic) metformin 500 mg tablet 500 mg PO BID 06/30/24 07/01/24 History naproxen 500 mg tablet 500 mg PO Q12H PRN pain 06/30/24 07/01/24 History omega-3 fatty acids 1,000 mg PO QDAY 06/30/24 07/01/24 History phentermine 37.5 mg capsule 37.5 mg PO QAM 06/30/24 07/01/24 History polyethylene glycol 3350 17 4 g PO QDAY 06/30/24 07/01/24 History gram/dose oral powder (Powderlax) Allergies Allergy/AdvReac Type Severity Reaction Status Date / Time No Known Allergies Allergy Verified 07/01/24 12:41 Exam Vital Signs Temp Pulse Resp BP Pulse Ox O2 Del Method 98.9 F 70 14 116/49 L 98 Room Air 07/13/24 03:00 07/13/24 03:00 07/13/24 03:00 07/13/24 03:00 07/13/24 03:00 07/13/24 03:00 Constitutional Constitutional: no acute distress Routine Respiratory Exam Respiratory: Present no resp distress Routine Rectal Exam Comments: right perianal swelling with exquisite tenderness, pus drainage, mild erythema and fluctuance Results Results: Laboratory Laboratory results: results reviewed Results: Imaging CT scan - pelvis: report reviewed and image reviewed Assessment & Plan Plan 44F s/p THD 07/01 presenting with perianal abscess. I explained with an court interpreter that I&D is the definitive treatment; I may be able to aspirate but depending on the exam in OR may need to make an incision which will be left open and can take weeks to heal. Pt expressed understanding and agrees to proceed Quality Measures Quality Measures none
--- NOTE | 2024-07-13 10:43 | PC.NURSE ---
Pt picked up by OR team, to be taken to Surgery. Report given to Santana VERMA
--- NOTE | 2024-07-13 11:54 | ESOP_ITS ---
Date of Procedure 07/13/24 Pre Op Diagnosis Perianal abscess Post Op Diagnosis Same Procedure Examination under anesthesia, placement of [place] drain Findings Left posterior perianal abscess with pre-existing opening, minimal pus, [place] drain placed to allow continuous drainage Procedure Description After discussion of risks and benefits, patient was brought to the operating room, SCDs were placed and general anesthesia was induced. She was placed in lithotomy position with proper padding and was prepped and draped in usual sterile fashion. She received preoperative antibiotics. After timeout a MALA was performed which was normal. At the left posterior perianal region there was an existing opening approximately 1 cm in anterior posterior dimension, with tunneling. There was minimal expression of pus from this opening and I used a hemostat to break up any loculations. I irrigated the wound with Betadine, hydrogen peroxide and saline and there were no signs of bleeding. In order to allow for continuing drainage I placed a [place] drain into this wound and sutured it to the skin with a 2-0 nylon. I performed a left pudendal nerve block as well as a local block for a total of 20 cc of half percent Marcaine. Patient was returned to supine position and extubated without complication. She was brought to PACU in stable condition Pathology / specimen None Estimated Blood Loss 10 Surgeon Aracelis Arellano MD Surgical Staff Operation Date: 07/13/24 11:00 Case Staff Anesthesiologist: Ilia Baxter
--- NOTE | 2024-07-13 11:56 | ESDS_ITS ---
Planned Discharge Date 07/13/24 DS: Providers Provider Date of admission: 07/13/24 08:28 Primary care physician: KATELYN Austin Admitting Provider: Aracelis Arellano MD Attending Provider on Admission: Aracelis Arellano MD Attending Provider on DC: Aracelis Arellano MD Discharging Provider: Aracelis Arellano MD Diagnosis Discharge Diagnosis (1) Perianal abscess: Status: Acute Problem List Completed Was Problem List Reviewed/Reconciled?: Yes Hospital Course Patient initially presented with symptomatic hemorrhoids and underwent THD with mucopexy on 07/01. Patient presented to ER on postop day 11 with pain and find ings of a perianal abscess. On 07/13 she underwent examination under anesthesia and placement of a Meche drain into the abscess cavity. Patient is overall hemodynamically normal and is appropriate for discharge home with close follow- up Exam Vital Signs Temp Pulse Resp BP Pulse Ox O2 Del Method 98.9 F 70 16 100/51 L 100 Room Air 07/13/24 03:00 07/13/24 10:00 07/13/24 10:00 07/13/24 10:00 07/13/24 10:00 07/13/24 10:00 Constitutional Constitutional: no acute distress Routine Respiratory Exam Respiratory: Present no resp distress Routine Rectal Exam Comments: Left posterior perianal abscess cavity with minimal surrounding erythema Discharge Plan Plan Patient Disposition: HOME (Self Care) Disposition Comment: Dr Arellano Prescriptions/Referrals Prescriptions/Med Rec: New amoxicillin-pot clavulanate 875-125 mg tablet 1 tab PO BID Qty: 8 0RF oxycodone-acetaminophen [Percocet] 5-325 mg tablet 1 tab PO Q6H MDD 6 tabs PRN (Reason: pain) Qty: 30 0RF No Action polyethylene glycol 3350 [Powderlax] 17 gram/dose powder 4 g PO QDAY lisinopril-hydrochlorothiazide [Zestoretic] 20-25 mg tablet 1 tab PO QDAY naproxen 500 mg tablet 500 mg PO Q12H PRN (Reason: pain) docusate sodium 100 mg capsule 100 mg PO QDAY omega-3 fatty acids Capsule 1,000 mg PO QDAY hydrocodone-acetaminophen 5-325 mg tablet 1 tab PO Q6H PRN (Reason: pain) metformin 500 mg tablet 500 mg PO BID phentermine 37.5 mg capsule 37.5 mg PO QAM Rx Instructions: must administer 30 minutes before or 1-2 hours after breakfast oxycodone-acetaminophen [Percocet] 5-325 mg tablet 1 tab PO Q6H MDD 6 tabs PRN (Reason: pain) Qty: 30 0RF ibuprofen 600 mg tablet 600 mg PO Q6H PRN (Reason: pain) Qty: 30 0RF docusate sodium [Colace] 100 mg capsule 100 mg PO BID PRN (Reason: constipation) Qty: 60 0RF Referrals: Aracelis Arellano MD [Physician] - (You will receive a phone call to confirm a follow-up appt with me next week) Janel Simms FNP [Primary Care Provider] - Patient/Caregiver Discharge Instructions Other Discharge Activity Instructions:: I placed a drain into the wound on your buttock to allow pus to drain as needed If it falls out, it is not an emergency but if you then develop worsening pain or swelling please seek care in ER You may resume sitz baths as needed up to TID for pain, swelling and itching Avoid constipation and diarrhea Take colace and miralax as needed to maintain soft bowel movements that do not require any straining Education Materials: Understanding Perianal Abscess, ED ABSCESS Joseline-Anal IandD Print Language: Georgian Stand Alone Forms: Jessy Award Info., Patient Portal Info Letter Discharge Order Discharge Orders: Discharge (Routine); Ordered 07/13/24 Ordered By: Aracelis Arellano Results Results: Laboratory Laboratory results: results reviewed Results: Imaging CT scan - abdomen: report reviewed and image reviewed Procedures Procedure Date 07/13/24 Procedures Examination under anesthesia, placement of Meche drain
--- NOTE | 2024-07-13 11:58 | SUR.PHASEI ---
pt arrived to PACU via gurney with oral airway present, breathing unlabored, dressing to perianal area clean, dry, and intact with mesh briefs in place, report from Mikael VERMA and Dr Bowers
--- NOTE | 2024-07-13 12:34 | SUR.PHASEII ---
1234: Received report from Adela Vergara RN, pt. AAOx4, vitals stable, breathing unlabored, dressing to buttocks CDI, no active bleed noted, no complaint of pain or nausea, resuming care of pt.
--- NOTE | 2024-07-13 12:34 | SUR.PHASEII ---
report to Farnaz VERMA
[2024-07-13] MEDS: fentaNYL CIT INJ 50 mCg/ML AMP 2ML 25 MCG IV (12:46)
--- NOTE | 2024-07-13 13:10 | SUR.PHASEII ---
1310: Pt. AAOx4, vitals stable, breathing unlabored, no complaint of pain or nausea, dressing to buttocks CDI, no active bleed noted, pt. tolerated sips of water well, pt. ambulated to wheelchair with steady gait and no assist, no complications. Gave discharge instructions to the pt. and her ride using mechanical systems design engineer, both verbalized understanding and had no further questions. Pt. left with all personal belongings.
== END 2024-07-13 13:10 | disposition home or self-care (01) ==
LOC: SERX 23:29 → SERHOLD 07-13 08:57 → S2EX 07-14 10:22
PROVIDERS: Nurse Practitioner Family; Emergency Provider Emergency Medicine; PCP Nurse Practitioner Family; Referring Provider Surgery; Visit Provider Surgery
PROC: (CPT 10030; principal; 2024-07-13 11:00)
DX: K61.0 Anal abscess (principal); I10 Essential (primary) hypertension; E11.9 Type 2 diabetes mellitus without complications; Z79.84 Long term (current) use of oral hypoglycemic drugs
CPT/HCPCS: 10030; 36415; 74176; 80053; 81001; 85025; 85610; 85730; 86850; 86900; 86901; 87077; 87086; 87186; 96361; 96365; 96375; 96376; 99285; A4217; A4649; J0694; J1885; J2250; J2270; J2405; J2543; J2704; J2765; J3010; J3490; J7030; J7050; A9270

== ENCOUNTER 2024-07-20 11:19 | Outpatient (AMB) | payer MEDICAID, SELFPAY ==
[2024-07-20 11:25] VITALS: BP 127/84; PULSE 82; RESP 19; TEMP 36.2; O2SAT 98; BMI 26.4
--- NOTE | 2024-07-20 11:25 | PD.GSCLVISIT ---
[facility]s - [facility] 07/20/24 11:25 Height 1.5 m Height Method Stated Weight 59.591 kg Weight Measurement Method Standing Scale BMI 26.4 BP 127/84 Blood Pressure Source Automatic Cuff Blood Pressure Location Left Upper Arm Position Sitting Respiration 19 Pulse 82 Pulse Source Monitor Temp 97.2 F Temp Source Temporal Artery Scan Pulse Oximetry (%) 98 Oxygen Delivery Method Room Air Med/Allergies Allergies & Medications Allergies No Known Allergies Allergy (Verified 07/20/24 11:25) Medication Reconciliation docusate sodium 100 mg capsule 100 mg PO QDAY 06/30/24 [History Confirmed 07/20/24] hydrocodone 5 mg-acetaminophen 325 mg tablet 1 tab PO Q6H PRN pain 06/30/24 [History Confirmed 07/20/24] lisinopril 20 mg-hydrochlorothiazide 25 mg tablet (Zestoretic) 1 tab PO QDAY 06/30/24 [History Confirmed 07/20/24] metformin 500 mg tablet 500 mg PO BID 06/30/24 [History Confirmed 07/20/24] naproxen 500 mg tablet 500 mg PO Q12H PRN pain 06/30/24 [History Confirmed 07/20/24] omega-3 fatty acids 1,000 mg PO QDAY 06/30/24 [History Confirmed 07/20/24] phentermine 37.5 mg capsule 37.5 mg PO QAM 06/30/24 [History Confirmed 07/20/24] polyethylene glycol 3350 17 gram/dose oral powder (Powderlax) 4 g PO QDAY 06/30/24 [History Confirmed 07/20/24] docusate sodium 100 mg capsule (Colace) 100 mg PO BID PRN constipation #60 caps 07/01/24 [Rx Confirmed 07/20/24] ibuprofen 600 mg tablet 600 mg PO Q6H PRN pain #30 tabs 07/01/24 [Rx Confirmed 07/20/24] oxycodone-acetaminophen 5 mg-325 mg tablet (Percocet) 1 tab PO Q6H PRN pain #30 tabs 07/01/24 [Rx Confirmed 07/20/24] amoxicillin 875 mg-potassium clavulanate 125 mg tablet 1 tab PO BID perianal abscess #8 tabs 07/13/24 [Rx Confirmed 07/20/24] oxycodone-acetaminophen 5 mg-325 mg tablet (Percocet) 1 tab PO Q6H PRN pain #30 tabs 07/13/24 [Rx Confirmed 07/20/24] hydrocortisone acetate 25 mg rectal suppository 25 mg [place] QHS #12 ea 07/16/24 [Rx Confirmed 07/20/24] MA Intake Visit Data Collection New Patient or Established: Established Patient (seen at [facility] within 3 years) Seen by Clinical Staff ONLY (RN/MA): No Reason for Visit:: F/U ABCESS Pain Present Currently: Yes Pain Location: Unable to identify Pain scale:: 3 Coating Mixer Required: Yes PCP or OBGYN visit in last 3 months: Yes Hx Now: No Do You Feel Safe at Home: Yes Authorities Contacted: N/A Smoking Status Smoking Status: Never smoker Immunization / Flu Flu Vaccine in the Last 12 Months: No Flu Vaccine Exclusion Criteria: No Exclusion Criteria Past Medical History Past Medical History NEUROLOGIC: Negative Neurological Disorders or Seizures CARDIAC: Positive Cardiac Disorders and Hypertension; Negative Congestive Heart Failure RESPIRATORY: Negative Chronic Obstructive Pulmonary Disease (COPD) GASTROINTESTINAL: Positive Gastrointestinal Disorders and Hemorrhoids; Negative Hepatitis GENITOURINARY: Negative Genitourinary Disorders or Renal Disease REPRODUCTIVE: Positive Previous Pregnancies (5) ENDOCRINE: Negative Endocrine Disorders, Diabetes Mellitus Type 1 or Diabetes Mellitus Type 2 HEMATOLOGIC: Negative Blood Disorders OTHER HISTORY: Positive Hospitalization (); Negative Autoimmune Disease, Shingles, Blood Transfusions, Blood Transfusion Reaction, Anesthesia Reactions or Cancer Family History FAMILY HISTORY: Positive Family Cardiac Disorders; Negative Family Psychiatric Problems, Family Respiratory Disorders, Family Gastrointestinal Problems, Family Cancer, Family Surgery or Family Anesthesia Reaction Surgical History SURGICAL: Positive Tubal Ligation and Section (5) Social History SMOKING STATUS: Smoking status: Never smoker ALCOHOL: Alcohol Intake: Current HOUSING: Housing: House HPI HPI Narrative 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 Pt reports ongoing pain but she has stopped taking narcotics due to constipation. After a bout of constipation last week pt noted blood in the toilet including clots after having a BM, but this has not happened since then. She continues to have some drainage from the perianal abscess site but the lorrie drain that I had placed intraoperatively has since fallen out ROS Review of Systems Systems Reviewed: All systems reviewed, normal except as documented Objective/Exam General General Appearance: alert, cooperative and well groomed Resp Respiratory exam: Absent respiratory distress Rectal Rectal exam: Present hemorrhoids (external hemorrhoids) and other (left perianal abscess cavity healing with no erythema, no fluctuance, mild tenderness, no drainage or bleeding) Assessment & Plan Diagnosis / Problem List (1) Hemorrhoids with complication: Status: Acute Assessment & Plan: 44F who presented with symptomatic hemorrhoids s/p THD 07/01, course complicated by abscess drained 07/13, gradually recovering with no signs of active infection Plan: F/u in 6 weeks (2) Perianal abscess: Status: Acute Assessment & Plan: No signs of active infection, no further antibiotics needed Office Procedures GNS Level of Care Nursing/Assessment Patient Status: Established Patient Nursing Assessment/Reassesment: Medication Reconciliation, Update PMH in EMR and Vital Signs Coordination of Care: Complex Care and Chronic Disease 1-5, Consent,records obtained, informed consent, Education Simp Pt/Fam, Results/Orders obtained and Staff clarify orders Special Needs: Language special needs Miscellaneous Interventions: Wound Cleaning/Preperation Established Patient Charge Established Patient Point Assignment: 115 Established Patient Point Charge: EP Level 3 (80-115) Patient Portal Questionaires Social History Living Situation History Housing: House Tobacco History Smoking Status: Never smoker Alcohol History Alcohol Intake: Current Domestic Abuse History Do You Feel Safe at Home: Yes Review of Systems Report any current symptoms Only answer those that you have currently: Past Medical History Past Medical History Have you ever been diagnosed with any of the following: Neurological Problems Seizures: No Cardiology Problems Congestive Heart Failure: No Hypertension: Yes Respiratory Problems Chronic Obstructive Pulmonary Disease (COPD): No Stomache/Intestinal Problems Hepatitis: No Hemorrhoids: Yes Genital/Urinary Problems Renal Disease: No Reproductive Problems Previous Pregnancies: Yes (5) Endocrine Problems Diabetes Mellitus Type 1: No Diabetes Mellitus Type 2: No Other Problems Hospitalization: Yes () Autoimmune Disease: No Shingles: No Blood Transfusions: No Blood Transfusion Reaction: No Anesthesia Reactions: No Cancer: No
== END 2024-07-20 12:50 | disposition home or self-care (01) ==
LOC: HODSRG 11:19
PROVIDERS: PCP Nurse Practitioner Family; Referring Provider Nurse Practitioner Family; Supervising Provider Surgery; Visit Provider Surgery
DX: K64.8 Other hemorrhoids (principal); K61.0 Anal abscess; Z98.890 Other specified postprocedural states
CPT/HCPCS: 99213; G0463

== ENCOUNTER 2024-08-24 09:23 | Outpatient (AMB) | payer MEDICAID, SELFPAY ==
[2024-08-24 09:38] VITALS: BP 152/96; PULSE 77; RESP 18; TEMP 36.4; O2SAT 98; BMI 27.5
--- NOTE | 2024-08-24 09:38 | PD.GSCLVISIT ---
Vital Signs - [facility] 08/24/24 09:38 Height 1.5 m Height Method Stated Weight 61.915 kg Weight Measurement Method Standing Scale BMI 27.5 BP 152/96 H Blood Pressure Source Automatic Cuff Blood Pressure Location Right Upper Arm Position Sitting Respiration 18 Pulse 77 Pulse Source Monitor Temp 97.6 F Temp Source Temporal Artery Scan Pulse Oximetry (%) 98 Oxygen Delivery Method Room Air Med/Allergies Allergies & Medications Allergies No Known Allergies Allergy (Verified 08/24/24 09:39) Medication Reconciliation hydrocodone 5 mg-acetaminophen 325 mg tablet 1 tab PO Q6H PRN pain 06/30/24 [History Confirmed 08/24/24] lisinopril 20 mg-hydrochlorothiazide 25 mg tablet (Zestoretic) 1 tab PO QDAY 06/30/24 [History Confirmed 08/24/24] metformin 500 mg tablet 500 mg PO BID 06/30/24 [History Confirmed 08/24/24] naproxen 500 mg tablet 500 mg PO Q12H PRN pain 06/30/24 [History Confirmed 08/24/24] omega-3 fatty acids 1,000 mg PO QDAY 06/30/24 [History Confirmed 08/24/24] phentermine 37.5 mg capsule 37.5 mg PO QAM 06/30/24 [History Confirmed 08/24/24] polyethylene glycol 3350 17 gram/dose oral powder (Powderlax) 4 g PO QDAY 06/30/24 [History Confirmed 08/24/24] ibuprofen 600 mg tablet 600 mg PO Q6H PRN pain #30 tabs 07/01/24 [Rx Confirmed 08/24/24] oxycodone-acetaminophen 5 mg-325 mg tablet (Percocet) 1 tab PO Q6H PRN pain #30 tabs 07/01/24 [Rx Confirmed 08/24/24] oxycodone-acetaminophen 5 mg-325 mg tablet (Percocet) 1 tab PO Q6H PRN pain #30 tabs 07/13/24 [Rx Confirmed 08/24/24] hydrocortisone acetate 25 mg rectal suppository 25 mg [place] QHS #12 ea 07/16/24 [Rx Confirmed 08/24/24] metronidazole 1 % topical cream 1 applic topical QDAY perianal fistula #60 grams 08/24/24 [Rx] MA Intake Visit Data Collection New Patient or Established: Established Patient (seen at [facility] within 3 years) Reason for Visit:: POST OP THD Pain Present Currently: Yes Pain Location: Buttock Pain scale:: 6 Pain Scale Used: Shrestha-Navarrete/Numerical Motor Coach Driver Required: Yes PCP or OBGYN visit in last 3 months: Yes Hx Now: No Do You Feel Safe at Home: Yes Authorities Contacted: N/A Smoking Status Smoking Status: Never smoker Immunization / Flu Flu Vaccine in the Last 12 Months: No Flu Vaccine Exclusion Criteria: No Exclusion Criteria Past Medical History Past Medical History NEUROLOGIC: Negative Neurological Disorders or Seizures CARDIAC: Positive Cardiac Disorders and Hypertension; Negative Congestive Heart Failure RESPIRATORY: Negative Chronic Obstructive Pulmonary Disease (COPD) GASTROINTESTINAL: Positive Gastrointestinal Disorders and Hemorrhoids; Negative Hepatitis GENITOURINARY: Negative Genitourinary Disorders or Renal Disease REPRODUCTIVE: Positive Previous Pregnancies (5) MUSCULOSKELETAL: Negative Musculoskeletal Disorders ENDOCRINE: Negative Endocrine Disorders, Diabetes Mellitus Type 1 or Diabetes Mellitus Type 2 HEMATOLOGIC: Negative Blood Disorders OTHER HISTORY: Positive Hospitalization (); Negative Autoimmune Disease, Shingles, Blood Transfusions, Blood Transfusion Reaction, Anesthesia Reactions or Cancer Family History FAMILY HISTORY: Positive Family Cardiac Disorders; Negative Family Psychiatric Problems, Family Respiratory Disorders, Family Gastrointestinal Problems, Family Cancer, Family Surgery or Family Anesthesia Reaction Surgical History SURGICAL: Positive Tubal Ligation and Section (5) Social History SMOKING STATUS: Smoking status: Never smoker ALCOHOL: Alcohol Intake: Current HOUSING: Housing: House Travel Risk Travel Hx Recent Travel: No HPI HPI Narrative 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 Pt reports ongoing pain limiting her activities, and she has had yellow drainage from the previous abscess site daily. She denies any fevers and states her BMs are soft without any straining or diarrhea. Pt is taking ibuprofen for pain and occasionally takes half an oxycodone ROS Review of Systems Systems Reviewed: All systems reviewed, normal except as documented Objective/Exam General General Appearance: alert, cooperative and well groomed Resp Respiratory exam: Absent respiratory distress Rectal Rectal exam: Present other (left perianal fistula which is tender to palpation, no active drainage) Assessment & Plan Diagnosis / Problem List (1) Perianal fistula: Status: Acute Assessment & Plan: 44F who presented with symptomatic hemorrhoids s/p colonoscopy, THD 07/01/24 course complicated by perianal abscess s/p I&D 07/13 now with signs and symptoms of a perianal fistula. I explained that surgical treatment of perianal fistula is done in two stages, first with seton placement followed by either fistulotomy or LIFT once drainage decreases. Pt is understandably reluctant to undergo another surgery, so we discussed the option of attempting conservative management with topical metronidazole which pt prefers for now. I explained that if she continues to have drainage surgery may be the best option but that it is reasonable to attempt conservative treatment for now. All questions were answered and pt is agreeable to this plan Plan: Metronidazole topical cream BID Follow up in 6 weeks Office Procedures GNS Level of Care Nursing/Assessment Patient Status: Established Patient Nursing Assessment/Reassesment: Medication Reconciliation, Update PMH in EMR and Vital Signs Coordination of Care: Complex Care and Chronic Disease 1-5, Education Complex Pt/Fam, Consent,records obtained, informed consent, Results/Orders obtained and Staff clarify orders Special Needs: Language special needs Established Patient Charge Established Patient Point Assignment: 95 Established Patient Point Charge: EP Level 3 (80-115) Patient Portal Questionaires Social History Living Situation History Housing: House Tobacco History Smoking Status: Never smoker Alcohol History Alcohol Intake: Current Domestic Abuse History Do You Feel Safe at Home: Yes Review of Systems Report any current symptoms Only answer those that you have currently: Past Medical History Past Medical History Have you ever been diagnosed with any of the following: Neurological Problems Seizures: No Cardiology Problems Congestive Heart Failure: No Hypertension: Yes Respiratory Problems Chronic Obstructive Pulmonary Disease (COPD): No Stomache/Intestinal Problems Hepatitis: No Hemorrhoids: Yes Genital/Urinary Problems Renal Disease: No Reproductive Problems Previous Pregnancies: Yes (5) Endocrine Problems Diabetes Mellitus Type 1: No Diabetes Mellitus Type 2: No Other Problems Hospitalization: Yes () Autoimmune Disease: No Shingles: No Blood Transfusions: No Blood Transfusion Reaction: No Anesthesia Reactions: No Cancer: No
== END 2024-08-24 10:21 | disposition home or self-care (01) ==
LOC: HODSRG 09:23
PROVIDERS: PCP Nurse Practitioner Family; Referring Provider Nurse Practitioner Family; Supervising Provider Surgery; Visit Provider Surgery
DX: Z48.817 Encounter for surgical aftercare following surgery on the skin and subcutaneous tissue (principal)
CPT/HCPCS: 99213; G0463

== ENCOUNTER 2024-10-19 10:08 | Outpatient (AMB) | payer MEDICAID, SELFPAY ==
--- NOTE | 2024-10-19 10:14 | PD.GSCLVISIT ---
[facility] - [facility] 10/19/24 10:24 Height 1.5 m Height Method Stated Weight 64.07 kg Weight Measurement Method Standing Scale BMI 28.4 BP 126/86 H Blood Pressure Source Automatic Cuff Blood Pressure Location Right Upper Arm Position Sitting Respiration 18 Pulse 71 Pulse Source Monitor Temp 97.9 F Temp Source Temporal Artery Scan Pulse Oximetry (%) 96 Oxygen Delivery Method Room Air Med/Allergies Allergies & Medications Allergies No Known Allergies Allergy (Verified 10/19/24 10:26) Medication Reconciliation hydrocodone 5 mg-acetaminophen 325 mg tablet 1 tab PO Q6H PRN pain 06/30/24 [History Confirmed 10/19/24] lisinopril 20 mg-hydrochlorothiazide 25 mg tablet (Zestoretic) 1 tab PO QDAY 06/30/24 [History Confirmed 10/19/24] metformin 500 mg tablet 500 mg PO BID 06/30/24 [History Confirmed 10/19/24] naproxen 500 mg tablet 500 mg PO Q12H PRN pain 06/30/24 [History Confirmed 10/19/24] omega-3 fatty acids 1,000 mg PO QDAY 06/30/24 [History Confirmed 10/19/24] phentermine 37.5 mg capsule 37.5 mg PO QAM 06/30/24 [History Confirmed 10/19/24] polyethylene glycol 3350 17 gram/dose oral powder (Powderlax) 4 g PO QDAY 06/30/24 [History Confirmed 10/19/24] ibuprofen 600 mg tablet 600 mg PO Q6H PRN pain #30 tabs 07/01/24 [Rx Confirmed 10/19/24] oxycodone-acetaminophen 5 mg-325 mg tablet (Percocet) 1 tab PO Q6H PRN pain #30 tabs 07/01/24 [Rx Confirmed 10/19/24] oxycodone-acetaminophen 5 mg-325 mg tablet (Percocet) 1 tab PO Q6H PRN pain #30 tabs 07/13/24 [Rx Confirmed 10/19/24] hydrocortisone acetate 25 mg rectal suppository 25 mg ME QHS #12 ea 07/16/24 [Rx Confirmed 10/19/24] metronidazole 1 % topical cream 1 applic topical QDAY perianal fistula #60 grams 08/24/24 [Rx Confirmed 10/19/24] MA Intake Visit Data Collection New Patient or Established: Established Patient (seen at [facility] within 3 years) Reason for Visit:: 2 WEEK FOLLOW UP Pain Present Currently: No Pain scale:: 0 Pain Scale Used: Shrestha-Navarrete/Numerical Flavor Room Worker Required: Yes PCP or OBGYN visit in last 3 months: Yes Hx Now: No Do You Feel Safe at Home: Yes Authorities Contacted: N/A Smoking Status Smoking Status: Never smoker Immunization / Flu Flu Vaccine in the Last 12 Months: No Flu Vaccine Exclusion Criteria: No Exclusion Criteria Past Medical History Past Medical History NEUROLOGIC: Negative Neurological Disorders or Seizures CARDIAC: Positive Cardiac Disorders and Hypertension; Negative Congestive Heart Failure RESPIRATORY: Negative Chronic Obstructive Pulmonary Disease (COPD) GASTROINTESTINAL: Positive Gastrointestinal Disorders and Hemorrhoids; Negative Hepatitis GENITOURINARY: Negative Genitourinary Disorders or Renal Disease REPRODUCTIVE: Positive Previous Pregnancies (5) MUSCULOSKELETAL: Negative Musculoskeletal Disorders ENDOCRINE: Negative Endocrine Disorders, Diabetes Mellitus Type 1 or Diabetes Mellitus Type 2 HEMATOLOGIC: Negative Blood Disorders OTHER HISTORY: Positive Hospitalization (); Negative Autoimmune Disease, Shingles, Blood Transfusions, Blood Transfusion Reaction, Anesthesia Reactions or Cancer Family History FAMILY HISTORY: Positive Family Cardiac Disorders; Negative Family Psychiatric Problems, Family Respiratory Disorders, Family Gastrointestinal Problems, Family Cancer, Family Surgery or Family Anesthesia Reaction Surgical History SURGICAL: Positive Tubal Ligation and Section (5) Social History SMOKING STATUS: Smoking status: Never smoker ALCOHOL: Alcohol Intake: Current HOUSING: Housing: House Travel Risk Travel Hx Recent Travel: No HPI HPI Narrative 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 Pt reports that since last visit she finally is starting to feel better, has less discomfort to the area and feels more comfortable wiping normally. She is continuing to have drainage from the fistula but it is noticeably less than before and she has had more pink-tinged drainage whereas it was more yellow before. Her BMs remain soft without any straining or diarrhea ROS Review of Systems Systems Reviewed: All systems reviewed, normal except as documented Objective/Exam General General Appearance: alert, cooperative and well groomed Resp Respiratory exam: Absent respiratory distress Rectal Rectal exam: Present other (left perianal fistula opening with no surrounding erythema, it is beefy red and silver nitrate was applied again today after discussing options with pt) Assessment & Plan Diagnosis / Problem List (1) Perianal fistula: Status: Acute Assessment & Plan: 44F with symptomatic hemorrhoids s/p colonoscopy, THD 07/01/24 course complicated by perianal abscess s/p I&D followed by perianal fistula, s/p silver nitrate application 10/05 and again today as pt did feel it provided benefit last time. Pt would like to follow up again in 4 weeks but is encouraged to reach out before then as needed Orders: Orders Ibuprofen 400mg tablet Today Silver nitrate applicator topical stick Today Office Procedures GNS Level of Care Nursing/Assessment Patient Status: Established Patient Nursing Assessment/Reassesment: Medication Reconciliation, Update PMH in EMR and Vital Signs Coordination of Care: Complex Care and Chronic Disease 1-5, Education Complex Pt/Fam, Consent,records obtained, informed consent, Results/Orders obtained and Staff clarify orders Special Needs: Language special needs Established Patient Charge Established Patient Point Assignment: 95 Established Patient Point Charge: EP Level 3 (80-115) Surgical Proc/IM SQ injection Minor Surgical Procedure: Yes (SILVER NITRATE) Medication Given Medication Given Medication Given: Yes Documented Dose Given: 2 Route: Infiitration Medication Given Medication Given Medication Given: Yes Documented Dose Given: 1 Route: Infiitration Office Meds ibuprofen 400 mg tablet Performing Provider: Aracelis Arellano MD Performing Location: [facility] Administered by: Aracelis Arellano MD on 10/19/24 11:01 Dose Route Admin Location Dispensed Lot Number Expiration Date [facility] [employer] 800 mg PO 800 mg [id number] 05/18/25 7725-8940-25 [employer] silver nitrate applicators 75 %-25 % topical stick Performing Provider: Aracelis Arellano MD Performing Location: [facility] Administered by: Aracelis Arellano MD on 10/19/24 11:01 Dose Route Admin Location Dispensed Lot Number Expiration Date [facility] [employer] 2 applic topical 2 ea [id number] 12/04/26 [address]-4 Patient Portal Questionaires Social History Living Situation History Housing: House Tobacco History Smoking Status: Never smoker Alcohol History Alcohol Intake: Current Domestic Abuse History Do You Feel Safe at Home: Yes Review of Systems Report any current symptoms Only answer those that you have currently: Past Medical History Past Medical History Have you ever been diagnosed with any of the following: Neurological Problems Seizures: No Cardiology Problems Congestive Heart Failure: No Hypertension: Yes Respiratory Problems Chronic Obstructive Pulmonary Disease (COPD): No Stomache/Intestinal Problems Hepatitis: No Hemorrhoids: Yes Genital/Urinary Problems Renal Disease: No Reproductive Problems Previous Pregnancies: Yes (5) Endocrine Problems Diabetes Mellitus Type 1: No Diabetes Mellitus Type 2: No Other Problems Hospitalization: Yes () Autoimmune Disease: No Shingles: No Blood Transfusions: No Blood Transfusion Reaction: No Anesthesia Reactions: No Cancer: No
[2024-10-19 10:24] VITALS: BP 126/86; PULSE 71; RESP 18; TEMP 36.6; O2SAT 96; BMI 28.4
== END 2024-10-19 10:50 | disposition home or self-care (01) ==
LOC: HODSRG 10:08
PROVIDERS: PCP Nurse Practitioner Family; Referring Provider Nurse Practitioner Family; Supervising Provider Surgery; Visit Provider Surgery
DX: K60.30 Anal fistula, unspecified (principal)
CPT/HCPCS: 17250; 99213; A9270; G0463

== ENCOUNTER 2024-11-02 09:33 | Outpatient (AMB) | payer MEDICAID, SELFPAY ==
[2024-11-02 09:41] VITALS: BP 126/87; PULSE 67; RESP 18; TEMP 36.3; O2SAT 97; BMI 28.3
--- NOTE | 2024-11-02 09:41 | GSCOFFNT_ITS ---
Vital Signs - [facility] 11/02/24 09:41 Height 1.5 m Height Method Stated Weight 63.673 kg Weight Measurement Method Standing Scale BMI 28.3 BP 126/87 H Blood Pressure Source Automatic Cuff Blood Pressure Location Right Upper Arm Position Sitting Respiration 18 Pulse 67 Pulse Source Monitor Temp 97.3 F Temp Source Temporal Artery Scan Pulse Oximetry (%) 97 Oxygen Delivery Method Room Air Med/Allergies Allergies & Medications Allergies No Known Allergies Allergy (Verified 11/02/24 09:42) Medication Reconciliation hydrocodone 5 mg-acetaminophen 325 mg tablet 1 tab PO Q6H PRN pain 06/30/24 [History Confirmed 11/02/24] lisinopril 20 mg-hydrochlorothiazide 25 mg tablet (Zestoretic) 1 tab PO QDAY 06/30/24 [History Confirmed 11/02/24] metformin 500 mg tablet 500 mg PO BID 06/30/24 [History Confirmed 11/02/24] naproxen 500 mg tablet 500 mg PO Q12H PRN pain 06/30/24 [History Confirmed 11/02/24] omega-3 fatty acids 1,000 mg PO QDAY 06/30/24 [History Confirmed 11/02/24] phentermine 37.5 mg capsule 37.5 mg PO QAM 06/30/24 [History Confirmed 11/02/24] polyethylene glycol 3350 17 gram/dose oral powder (Powderlax) 4 g PO QDAY 06/30/24 [History Confirmed 11/02/24] ibuprofen 600 mg tablet 600 mg PO Q6H PRN pain #30 tabs 07/01/24 [Rx Confirmed 11/02/24] oxycodone-acetaminophen 5 mg-325 mg tablet (Percocet) 1 tab PO Q6H PRN pain #30 tabs 07/01/24 [Rx Confirmed 11/02/24] oxycodone-acetaminophen 5 mg-325 mg tablet (Percocet) 1 tab PO Q6H PRN pain #30 tabs 07/13/24 [Rx Confirmed 11/02/24] hydrocortisone acetate 25 mg rectal suppository 25 mg [place] QHS #12 ea 07/16/24 [Rx Confirmed 11/02/24] metronidazole 1 % topical cream 1 applic topical QDAY perianal fistula #60 grams 08/24/24 [Rx Confirmed 06/16/25] mupirocin 2 % topical ointment 1 applic topical BID PRN perianal itching #22 grams 11/02/24 [Rx] MA Intake Visit Data Collection New Patient or Established: Established Patient (seen at [facility] within 3 years) Seen by Clinical Staff ONLY (RN/CALVIN): No Reason for Visit:: 2 WEEK FOLLOW UP Pain Location: Buttock Pain scale:: 0 Pain Scale Used: Shrestha-Landon/Numerical Implementation Project Coordinator Required: Yes PCP or OBGYN visit in last 3 months: Yes Hx Now: No Do You Feel Safe at Home: Yes Authorities Contacted: N/A Smoking Status Smoking Status: Never smoker Immunization / Flu Flu Vaccine in the Last 12 Months: No Flu Vaccine Exclusion Criteria: No Exclusion Criteria Past Medical History Past Medical History NEUROLOGIC: Negative Neurological Disorders or Seizures CARDIAC: Positive Cardiac Disorders and Hypertension; Negative Congestive Heart Failure RESPIRATORY: Negative Chronic Obstructive Pulmonary Disease (COPD) GASTROINTESTINAL: Positive Gastrointestinal Disorders and Hemorrhoids; Negative Hepatitis GENITOURINARY: Negative Genitourinary Disorders or Renal Disease REPRODUCTIVE: Positive Previous Pregnancies (5) MUSCULOSKELETAL: Negative Musculoskeletal Disorders ENDOCRINE: Negative Endocrine Disorders, Diabetes Mellitus Type 1 or Diabetes Mellitus Type 2 HEMATOLOGIC: Negative Blood Disorders OTHER HISTORY: Positive Hospitalization (); Negative Autoimmune Disease, Shingles, Blood Transfusions, Blood Transfusion Reaction, Anesthesia Reactions or Cancer Family History FAMILY HISTORY: Positive Family Cardiac Disorders; Negative Family Psychiatric Problems, Family Respiratory Disorders, Family Gastrointestinal Problems, Family Cancer, Family Surgery or Family Anesthesia Reaction Surgical History SURGICAL: Positive Tubal Ligation and Section (5) Social History SMOKING STATUS: Smoking status: Never smoker ALCOHOL: Alcohol Intake: Current HOUSING: Housing: House Travel Risk Travel Hx Recent Travel: No HPI HPI Narrative 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 Pt states her pain and drainage tend to wax and wane; yesterday she had severe pain with no clear exacerbating factor but today feels better, and she continues to have drainage which is sometimes confidential investigator, sometimes a bit heavier. Overall she does feel that the silver nitrate has improved her symptoms and she would like to have it done again. Pt does feel like she has some itching in the area and that the remedies she is using are not helping that aspect as much ROS Review of Systems Systems Reviewed: All systems reviewed, normal except as documented Objective/Exam General General Appearance: alert, cooperative and well groomed Resp Respiratory exam: Absent respiratory distress Rectal Rectal exam: Present other (left perianal fistula with punctate external opening, no surrouding erythema, no fluctuance or tenderness) Assessment & Plan Diagnosis / Problem List (1) Perianal fistula: Status: Acute Assessment & Plan: 44F with symptomatic hemorrhoids s/p colonoscopy, THD 07/01/24, course complicated by perianal abscess s/p I&D followed by perianal fistula, being treated with silver nitrate with some symptomatic improvement. Plan: Follow up in 4 weeks Mupirocin for pruritis Orders: Orders Ibuprofen 400mg tablet Today Silver nitrate applicator topical stick Today Office Procedures GNS Level of Care Nursing/Assessment Patient Status: Established Patient Nursing Assessment/Reassesment: Medication Reconciliation, Update PMH in EMR and Vital Signs Coordination of Care: Complex Care and Chronic Disease 1-5, Education Complex Pt/Fam, Consent,records obtained, informed consent, Results/Orders obtained and Staff clarify orders Special Needs: Language special needs Established Patient Charge Established Patient Point Assignment: 95 Established Patient Point Charge: EP Level 3 (80-115) Surgical Proc/IM SQ injection Minor Surgical Procedure: Yes (SILVER NITRATE) Medication Given Medication Given Medication Given: Yes Documented Dose Given: 2 Route: PO Medication Given Medication Given Medication Given: Yes Documented Dose Given: 2 Route: IM Office Meds ibuprofen 400 mg tablet Performing Provider: Aracelis Arellano MD Performing Location: [facility] Administered by: Aracelis Arellano MD on 11/02/24 10:18 Dose Route Admin Location Dispensed Lot Number Expiration Date [facility] [employer] 800 mg PO 800 mg [id number] 04/19/25 3993-0844-74 [employer] silver nitrate applicators 75 %-25 % topical stick Performing Provider: Aracelis Arellano MD Performing Location: [facility] Administered by: Aracelis Arellano MD on 11/02/24 10:18 Dose Route Admin Location Dispensed Lot Number Expiration Date [facility] Spiritual [employer] 2 applic topical 2 ea [id number] 12/04/26 Patient Portal Questionaires Social History Living Situation History Housing: House Tobacco History Smoking Status: Never smoker Alcohol History Alcohol Intake: Current Domestic Abuse History Do You Feel Safe at Home: Yes Review of Systems Report any current symptoms Only answer those that you have currently: Past Medical History Past Medical History Have you ever been diagnosed with any of the following: Neurological Problems Seizures: No Cardiology Problems Congestive Heart Failure: No Hypertension: Yes Respiratory Problems Chronic Obstructive Pulmonary Disease (COPD): No Stomache/Intestinal Problems Hepatitis: No Hemorrhoids: Yes Genital/Urinary Problems Renal Disease: No Reproductive Problems Previous Pregnancies: Yes (5) Endocrine Problems Diabetes Mellitus Type 1: No Diabetes Mellitus Type 2: No Other Problems Hospitalization: Yes () Autoimmune Disease: No Shingles: No Blood Transfusions: No Blood Transfusion Reaction: No Anesthesia Reactions: No Cancer: No
== END 2024-11-02 10:18 | disposition home or self-care (01) ==
LOC: HODSRG 09:33
PROVIDERS: PCP Nurse Practitioner Family; Referring Provider Nurse Practitioner Family; Supervising Provider Surgery; Visit Provider Surgery
DX: K60.30 Anal fistula, unspecified (principal); I10 Essential (primary) hypertension
CPT/HCPCS: 17250; 99213; A9270; G0463

== ENCOUNTER 2024-11-23 10:27 | Outpatient (AMB) | payer MEDICAID, SELFPAY ==
[2024-11-23 10:35] VITALS: BP 118/82; PULSE 78; RESP 19; TEMP 36.3; O2SAT 95; BMI 28.6
--- NOTE | 2024-11-23 10:35 | GSCOFFNT_ITS ---
Vital Signs - [facility] 11/23/24 10:35 Height 1.5 m Height Method Stated Weight 64.495 kg Weight Measurement Method Standing Scale BMI 28.6 BP 118/82 Blood Pressure Source Automatic Cuff Blood Pressure Location Left Upper Arm Position Sitting Respiration 19 Pulse 78 Pulse Source Monitor Temp 97.4 F Temp Source Temporal Artery Scan Pulse Oximetry (%) 95 Oxygen Delivery Method Room Air Med/Allergies Allergies & Medications Allergies No Known Allergies Allergy (Verified 11/23/24 10:35) Medication Reconciliation hydrocodone 5 mg-acetaminophen 325 mg tablet 1 tab PO Q6H PRN pain 06/30/24 [History Confirmed 11/23/24] lisinopril 20 mg-hydrochlorothiazide 25 mg tablet (Zestoretic) 1 tab PO QDAY 06/30/24 [History Confirmed 11/23/24] metformin 500 mg tablet 500 mg PO BID 06/30/24 [History Confirmed 11/23/24] naproxen 500 mg tablet 500 mg PO Q12H PRN pain 06/30/24 [History Confirmed 11/23/24] omega-3 fatty acids 1,000 mg PO QDAY 06/30/24 [History Confirmed 11/23/24] phentermine 37.5 mg capsule 37.5 mg PO QAM 06/30/24 [History Confirmed 11/23/24] polyethylene glycol 3350 17 gram/dose oral powder (Powderlax) 4 g PO QDAY 06/30/24 [History Confirmed 11/23/24] ibuprofen 600 mg tablet 600 mg PO Q6H PRN pain #30 tabs 07/01/24 [Rx Confirmed 11/23/24] oxycodone-acetaminophen 5 mg-325 mg tablet (Percocet) 1 tab PO Q6H PRN pain #30 tabs 07/13/24 [Rx Confirmed 11/23/24] hydrocortisone acetate 25 mg rectal suppository [address] QHS #12 ea 07/16/24 [Rx Confirmed 11/23/24] metronidazole 1 % topical cream 1 applic topical QDAY perianal fistula #60 grams 08/24/24 [Rx Confirmed 11/23/24] mupirocin 2 % topical ointment 1 applic topical BID PRN perianal itching #22 grams 11/02/24 [Rx Confirmed 11/23/24] [place] Intake Visit Data Collection New Patient or Established: Established Patient (seen at [facility] within 3 years) Seen by Clinical Staff ONLY (RN/MA): No Reason for Visit:: FU FISTULA Pain Present Currently: No Technical Sme Required: Yes PCP or OBGYN visit in last 3 months: Yes Hx Now: No Do You Feel Safe at Home: Yes Smoking Status Smoking Status: Never smoker Immunization / Flu Flu Vaccine in the Last 12 Months: Yes Flu Vaccine Exclusion Criteria: Already Received Past Medical History Past Medical History NEUROLOGIC: Negative Neurological Disorders or Seizures CARDIAC: Positive Cardiac Disorders and Hypertension; Negative Congestive Heart Failure RESPIRATORY: Negative Chronic Obstructive Pulmonary Disease (COPD) GASTROINTESTINAL: Positive Gastrointestinal Disorders and Hemorrhoids; Negative Hepatitis GENITOURINARY: Negative Genitourinary Disorders or Renal Disease REPRODUCTIVE: Positive Previous Pregnancies (5) ENDOCRINE: Negative Endocrine Disorders, Diabetes Mellitus Type 1 or Diabetes Mellitus Type 2 HEMATOLOGIC: Negative Blood Disorders OTHER HISTORY: Positive Hospitalization (); Negative Autoimmune Disease, Shingles, Blood Transfusions, Blood Transfusion Reaction, Anesthesia Reactions or Cancer Family History FAMILY HISTORY: Positive Family Cardiac Disorders; Negative Family Psychiatric Problems, Family Respiratory Disorders, Family Gastrointestinal Problems, Family Cancer, Family Surgery or Family Anesthesia Reaction Surgical History SURGICAL: Positive Tubal Ligation and Section (5) Social History SMOKING STATUS: Smoking status: Never smoker ALCOHOL: Alcohol Intake: Current HOUSING: Housing: House HPI HPI Narrative 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 Pt continues to have perianal drainage, which goes up and down in terms of volume and lately has been mixed with blood as well as feces. Generally she has little to no pain but she did have a recent episode that required her to take norco. Her BMs remain soft without any straining or diarrhea and she did feel the mupirocin helped with the pruritis but she feels she might have used too much because the area is a bit dry and sensitive ROS Review of Systems Systems Reviewed: All systems reviewed, normal except as documented Objective/Exam General General Appearance: alert, cooperative and well groomed Resp Respiratory exam: Absent respiratory distress Rectal Rectal exam: Present other (left posterior perianal fistula opening with minimal purulent drainage, no surrounding erythema, silver nitrate applied again today) Assessment & Plan Diagnosis / Problem List (1) Perianal fistula: Status: Acute Assessment & Plan: 44F with symptomatic hemorrhoids s/p colonoscopy, THD 07/01/24, course complicated by perianal abscess s/p I&D followed by perianal fistula, with silver nitrate application to the area now x4. We have talked at length about surgical treatments but pt prefers to wait a few months as she is returning to work soon. Plan: F/u in 2 weeks Orders: Orders Silver nitrate applicator topical stick Today Ibuprofen 400mg tablet Today Office Procedures GNS Level of Care Nursing/Assessment Patient Status: Established Patient Nursing Assessment/Reassesment: Medication Reconciliation, Update PMH in EMR and Vital Signs Coordination of Care: Complex Care and Chronic Disease 1-5, Consent,records obtained, informed consent, Education Simp Pt/Fam, Results/Orders obtained and Staff clarify orders Special Needs: Language special needs Established Patient Charge Established Patient Point Assignment: 90 Established Patient Point Charge: EP Level 3 (80-115) Surgical Proc/IM SQ injection Minor Surgical Procedure: Yes (SILVER NITRATE) Medication Given Medication Given Medication Given: Yes Documented Dose Given: 2 Route: Infiitration Medication Given Medication Given Medication Given: Yes Documented Dose Given: 2 Route: Infiitration Office Meds ibuprofen 400 mg tablet Performing Provider: Aracelis Arellano MD Performing Location: [facility] Administered by: Aracelis Arellano MD on 11/23/24 11:04 Dose Route Admin Location Dispensed Lot Number Expiration Date [facility] Product Lead 800 mg PO 800 mg [id number] 04/19/25 5530-6638-81 [employer] MACEU silver nitrate applicators 75 %-25 % topical stick Performing Provider: Aracelis Arellano MD Performing Location: [facility] Administered by: Aracelis Arellano MD on 11/23/24 10:56 Dose Route Admin Location Dispensed Lot Number Expiration Date [facility] Product [employer] 2 ea topical 2 ea [id number] 12/04/26 Patient Portal Questionaires Social History Living Situation History Housing: House Tobacco History Smoking Status: Never smoker Alcohol History Alcohol Intake: Current Domestic Abuse History Do You Feel Safe at Home: Yes Review of Systems Report any current symptoms Only answer those that you have currently: Past Medical History Past Medical History Have you ever been diagnosed with any of the following: Neurological Problems Seizures: No Cardiology Problems Congestive Heart Failure: No Hypertension: Yes Respiratory Problems Chronic Obstructive Pulmonary Disease (COPD): No Stomache/Intestinal Problems Hepatitis: No Hemorrhoids: Yes Genital/Urinary Problems Renal Disease: No Reproductive Problems Previous Pregnancies: Yes (5) Endocrine Problems Diabetes Mellitus Type 1: No Diabetes Mellitus Type 2: No Other Problems Hospitalization: Yes () Autoimmune Disease: No Shingles: No Blood Transfusions: No Blood Transfusion Reaction: No Anesthesia Reactions: No Cancer: No
== END 2024-11-23 11:06 | disposition home or self-care (01) ==
LOC: HODSRG 10:27
PROVIDERS: PCP Nurse Practitioner Family; Referring Provider Nurse Practitioner Family; Supervising Provider Surgery; Visit Provider Surgery
DX: K60.30 Anal fistula, unspecified (principal)
CPT/HCPCS: 17250; 99213; A9270; G0463

== ENCOUNTER 2024-12-07 10:40 | Outpatient (AMB) | payer MEDICAID, SELFPAY ==
--- NOTE | 2024-12-07 10:46 | GSCOFFNT_ITS ---
[facility] - [facility] 12/07/24 10:50 Height 1.5 m Height Method Stated Weight 62.709 kg Weight Measurement Method Standing Scale BMI 27.8 BP 122/83 Blood Pressure Source Automatic Cuff Blood Pressure Location Left Upper Arm Position Sitting Respiration 16 Pulse 78 Pulse Source Monitor Temp 97.7 F Temp Source Temporal Artery Scan Pulse Oximetry (%) 98 Oxygen Delivery Method Room Air Med/Allergies Allergies & Medications Allergies No Known Allergies Allergy (Verified 12/07/24 10:51) Medication Reconciliation hydrocodone 5 mg-acetaminophen 325 mg tablet 1 tab PO Q6H PRN pain 06/30/24 [History Confirmed 12/07/24] lisinopril 20 mg-hydrochlorothiazide 25 mg tablet (Zestoretic) 1 tab PO QDAY 06/30/24 [History Confirmed 12/07/24] metformin 500 mg tablet 500 mg PO BID 06/30/24 [History Confirmed 12/07/24] naproxen 500 mg tablet 500 mg PO Q12H PRN pain 06/30/24 [History Confirmed 12/07/24] omega-3 fatty acids 1,000 mg PO QDAY 06/30/24 [History Confirmed 12/07/24] phentermine 37.5 mg capsule 37.5 mg PO QAM 06/30/24 [History Confirmed 12/07/24] polyethylene glycol 3350 17 gram/dose oral powder (Powderlax) 4 g PO QDAY 06/30/24 [History Confirmed 12/07/24] ibuprofen 600 mg tablet 600 mg PO Q6H PRN pain #30 tabs 07/01/24 [Rx Confirmed 12/07/24] oxycodone-acetaminophen 5 mg-325 mg tablet (Percocet) 1 tab PO Q6H PRN pain #30 tabs 07/13/24 [Rx Confirmed 12/07/24] hydrocortisone acetate 25 mg rectal suppository 25 mg [place] QHS #12 ea 07/16/24 [Rx Confirmed 12/07/24] metronidazole 1 % topical cream 1 applic topical QDAY perianal fistula #60 grams 08/24/24 [Rx Confirmed 12/07/24] mupirocin 2 % topical ointment 1 applic topical BID PRN perianal itching #22 grams 11/02/24 [Rx Confirmed 12/07/24] [place] Intake Visit Data Collection New Patient or Established: Established Patient (seen at [facility] within 3 years) Seen by Clinical Staff ONLY (RN/MA): No Reason for Visit:: F/U THD Pain Present Currently: No Pain scale:: 0 Pain Scale Used: Shrestha-Navarrete/Numerical Mine Supervisor Required: Yes PCP or OBGYN visit in last 3 months: Yes Hx Now: No Do You Feel Safe at Home: Yes Authorities Contacted: N/A Smoking Status Smoking Status: Never smoker Immunization / Flu Flu Vaccine in the Last 12 Months: No Flu Vaccine Exclusion Criteria: No Exclusion Criteria Past Medical History Past Medical History NEUROLOGIC: Negative Neurological Disorders or Seizures CARDIAC: Positive Cardiac Disorders and Hypertension; Negative Congestive Heart Failure RESPIRATORY: Negative Chronic Obstructive Pulmonary Disease (COPD) GASTROINTESTINAL: Positive Gastrointestinal Disorders and Hemorrhoids; Negative Hepatitis GENITOURINARY: Negative Genitourinary Disorders or Renal Disease REPRODUCTIVE: Positive Previous Pregnancies (5) ENDOCRINE: Negative Endocrine Disorders, Diabetes Mellitus Type 1 or Diabetes Mellitus Type 2 HEMATOLOGIC: Negative Blood Disorders OTHER HISTORY: Positive Hospitalization (); Negative Autoimmune Disease, Shingles, Blood Transfusions, Blood Transfusion Reaction, Anesthesia Reactions or Cancer Family History FAMILY HISTORY: Positive Family Cardiac Disorders; Negative Family Psychiatric Problems, Family Respiratory Disorders, Family Gastrointestinal Problems, Family Cancer, Family Surgery or Family Anesthesia Reaction Surgical History SURGICAL: Positive Tubal Ligation and Section (5) Social History SMOKING STATUS: Smoking status: Never smoker ALCOHOL: Alcohol Intake: Current HOUSING: Housing: House [facility] HPI Narrative Spoke to pt with in-person site interpreter 44F with symptomatic hemorrhoids s/p colonoscopy, THD 07/01/24, course complicated by perianal abscess s/p I&D followed by perianal fistula, with silver nitrate application to the area now x4 here for planned follow up. Pt states the area is feeling better overall with no recent pain, intermittent drainage but her main concern is itchiness. She is returning to work Wed ROS Review of Systems Systems Reviewed: All systems reviewed, normal except as documented Objective/Exam General General Appearance: alert, cooperative and well groomed Resp Respiratory exam: Absent respiratory distress Assessment & Plan Diagnosis / Problem List (1) Perianal fistula: Status: Acute Assessment & Plan: 44F with symptomatic hemorrhoids s/p colonoscopy, THD 07/01/24, course complicated by perianal abscess s/p I&D followed by perianal fistula, with silver nitrate application to the area now x4 here for planned follow up, reporting overall improvement in her symptoms though they have not fully resolved. Pt would like to hold off on silver nitrate for now and prefers to follow up in 1 month to see how her resuming work affects her symptoms. All questions were answered and pt is encouraged to reach out before her next appt if needed Office Procedures GNS Level of Care Nursing/Assessment Patient Status: Established Patient Nursing Assessment/Reassesment: Medication Reconciliation, Update PMH in EMR and Vital Signs Coordination of Care: Complex Care and Chronic Disease 1-5, Consent,records obtained, informed consent, Education Simp Pt/Fam, Results/Orders obtained and Staff clarify orders Special Needs: Language special needs Established Patient Charge Established Patient Point Assignment: 90 Established Patient Point Charge: EP Level 3 (80-115) Patient Portal Questionaires Social History Living Situation History Housing: House Tobacco History Smoking Status: Never smoker Alcohol History Alcohol Intake: Current Domestic Abuse History Do You Feel Safe at Home: Yes Review of Systems Report any current symptoms Only answer those that you have currently: Past Medical History Past Medical History Have you ever been diagnosed with any of the following: Neurological Problems Seizures: No Cardiology Problems Congestive Heart Failure: No Hypertension: Yes Respiratory Problems Chronic Obstructive Pulmonary Disease (COPD): No Stomache/Intestinal Problems Hepatitis: No Hemorrhoids: Yes Genital/Urinary Problems Renal Disease: No Reproductive Problems Previous Pregnancies: Yes (5) Endocrine Problems Diabetes Mellitus Type 1: No Diabetes Mellitus Type 2: No Other Problems Hospitalization: Yes () Autoimmune Disease: No Shingles: No Blood Transfusions: No Blood Transfusion Reaction: No Anesthesia Reactions: No Cancer: No
[2024-12-07 10:50] VITALS: BP 122/83; PULSE 78; RESP 16; TEMP 36.5; O2SAT 98; BMI 27.8
== END 2024-12-07 11:07 | disposition home or self-care (01) ==
LOC: HODSRG 10:40
PROVIDERS: PCP Nurse Practitioner Family; Referring Provider Nurse Practitioner Family; Supervising Provider Surgery; Visit Provider Surgery
DX: K60.30 Anal fistula, unspecified (principal); Z98.890 Other specified postprocedural states; I10 Essential (primary) hypertension
CPT/HCPCS: 99213; G0463

== ENCOUNTER 2025-01-21 15:04 | Outpatient (AMB) | payer MEDICAID, SELFPAY ==
[2025-01-21 15:12] VITALS: BP 116/81; PULSE 84; RESP 18; TEMP 36.3; O2SAT 99; BMI 27.0
--- NOTE | 2025-01-21 15:12 | PD.GSCLVISIT ---
[facility] Sign[facility] - [facility] 01/21/25 15:12 Height 1.5 m Height Method Measured Weight 60.866 kg Weight Measurement Method Standing Scale BMI 27.0 BP 116/81 Blood Pressure Source Automatic Cuff Blood Pressure Location Left Upper Arm Position Sitting Respiration 18 Pulse 84 Pulse Source Monitor Temp 97.3 F Temp Source Temporal Artery Scan Pulse Oximetry (%) 99 Oxygen Delivery Method Room Air Med/Allergies Allergies & Medications Allergies No Known Allergies Allergy (Verified 01/21/25 15:13) Medication Reconciliation hydrocodone 5 mg-acetaminophen 325 mg tablet 1 tab PO Q6H PRN pain 06/30/24 [History Confirmed 01/21/25] lisinopril 20 mg-hydrochlorothiazide 25 mg tablet (Zestoretic) 1 tab PO QDAY 06/30/24 [History Confirmed 01/21/25] metformin 500 mg tablet 500 mg PO BID 06/30/24 [History Confirmed 01/21/25] naproxen 500 mg tablet 500 mg PO Q12H PRN pain 06/30/24 [History Confirmed 01/21/25] omega-3 fatty acids 1,000 mg PO QDAY 06/30/24 [History Confirmed 01/21/25] phentermine 37.5 mg capsule 37.5 mg PO QAM 06/30/24 [History Confirmed 01/21/25] polyethylene glycol 3350 17 gram/dose oral powder (Powderlax) 4 g PO QDAY 06/30/24 [History Confirmed 01/21/25] ibuprofen 600 mg tablet 600 mg PO Q6H PRN pain #30 tabs 07/01/24 [Rx Confirmed 01/21/25] oxycodone-acetaminophen 5 mg-325 mg tablet (Percocet) 1 tab PO Q6H PRN pain #30 tabs 07/13/24 [Rx Confirmed 01/21/25] hydrocortisone acetate 25 mg rectal suppository 25 mg [place] QHS #12 ea 07/16/24 [Rx Confirmed 01/21/25] metronidazole 1 % topical cream 1 applic topical QDAY perianal fistula #60 grams 08/24/24 [Rx Confirmed 01/21/25] mupirocin 2 % topical ointment 1 applic topical BID PRN perianal itching #22 grams 11/02/24 [Rx Confirmed 01/21/25] [place] Intake Visit Data Collection New Patient or Established: Established Patient (seen at [facility] within 3 years) Seen by Clinical Staff ONLY (RN/MA): No Reason for Visit:: 1 MONTH F/U Pain Present Currently: No Pain Scale Used: Shrestha-Navarrete/Numerical Peanut Butter Maker Required: Yes PCP or OBGYN visit in last 3 months: Yes Hx Now: No Do You Feel Safe at Home: Yes Authorities Contacted: N/A Smoking Status Smoking Status: Never smoker Immunization / Flu Flu Vaccine in the Last 12 Months: Yes Flu Vaccine Exclusion Criteria: Already Received Past Medical History Past Medical History NEUROLOGIC: Negative Neurological Disorders or Seizures CARDIAC: Positive Cardiac Disorders and Hypertension; Negative Congestive Heart Failure RESPIRATORY: Negative Chronic Obstructive Pulmonary Disease (COPD) GASTROINTESTINAL: Positive Gastrointestinal Disorders and Hemorrhoids; Negative Hepatitis GENITOURINARY: Negative Genitourinary Disorders or Renal Disease REPRODUCTIVE: Positive Previous Pregnancies (5) ENDOCRINE: Negative Endocrine Disorders, Diabetes Mellitus Type 1 or Diabetes Mellitus Type 2 HEMATOLOGIC: Negative Blood Disorders OTHER HISTORY: Positive Hospitalization (); Negative Autoimmune Disease, Shingles, Blood Transfusions, Blood Transfusion Reaction, Anesthesia Reactions or Cancer Family History FAMILY HISTORY: Positive Family Cardiac Disorders; Negative Family Psychiatric Problems, Family Respiratory Disorders, Family Gastrointestinal Problems, Family Cancer, Family Surgery or Family Anesthesia Reaction Surgical History SURGICAL: Positive Tubal Ligation and Section (5) Social History SMOKING STATUS: Smoking status: Never smoker ALCOHOL: Alcohol Intake: Current HOUSING: Housing: House HPI HPI Narrative 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 Pt states that since last visit the drainage has been intermittent, she has gone a few days with no drainage at all but has also had days with drainage similar to previous episodes. She showed me pictures from many different days of the drainage and it is yellow purulent, usually covering a few square cm. Pt reports she has had some episodes of constipation but is generally soft and regular. Since she has returned to work she tries to avoid having a BM there as she would have to use a port a potty. Overall she does feel that the drainage has decreased compared to a few months ago ROS Review of Systems Systems Reviewed: All systems reviewed, normal except as documented Objective/Exam General General Appearance: alert, cooperative and well groomed Resp Respiratory exam: Absent respiratory distress Assessment & Plan Diagnosis / Problem List (1) Perianal fistula: Status: Acute Assessment & Plan: 44F with symptomatic hemorrhoids s/p colonoscopy, THD 07/01/24, course complicated by perianal abscess s/p I&D followed by perianal fistula, with ongoing drainage although pt reports there has been a noticeable decrease overall. She still prefers to hold off on surgery as she is busy at work, would like to follow up in 2 months but is encouraged to reach out if any concerns develop in the meantime Office Procedures GNS Level of Care Nursing/Assessment Patient Status: Established Patient Nursing Assessment/Reassesment: Medication Reconciliation, Update PMH in EMR and Vital Signs Coordination of Care: Complex Care and Chronic Disease 1-5, Education Complex Pt/Fam, Consent,records obtained, informed consent, Results/Orders obtained and Staff clarify orders Special Needs: Language special needs Established Patient Charge Established Patient Point Assignment: 95 Established Patient Point Charge: EP Level 3 (80-115) Patient Portal Questionaires Social History Living Situation History Housing: House Tobacco History Smoking Status: Never smoker Alcohol History Alcohol Intake: Current Domestic Abuse History Do You Feel Safe at Home: Yes Review of Systems Report any current symptoms Only answer those that you have currently: Past Medical History Past Medical History Have you ever been diagnosed with any of the following: Neurological Problems Seizures: No Cardiology Problems Congestive Heart Failure: No Hypertension: Yes Respiratory Problems Chronic Obstructive Pulmonary Disease (COPD): No Stomache/Intestinal Problems Hepatitis: No Hemorrhoids: Yes Genital/Urinary Problems Renal Disease: No Reproductive Problems Previous Pregnancies: Yes (5) Endocrine Problems Diabetes Mellitus Type 1: No Diabetes Mellitus Type 2: No Other Problems Hospitalization: Yes () Autoimmune Disease: No Shingles: No Blood Transfusions: No Blood Transfusion Reaction: No Anesthesia Reactions: No Cancer: No
== END 2025-01-21 15:42 | disposition home or self-care (01) ==
LOC: HODSRG 15:04
PROVIDERS: PCP Nurse Practitioner Family; Referring Provider Nurse Practitioner Family; Supervising Provider Surgery; Visit Provider Surgery
DX: Z48.817 Encounter for surgical aftercare following surgery on the skin and subcutaneous tissue (principal); K60.30 Anal fistula, unspecified; I10 Essential (primary) hypertension
CPT/HCPCS: 99213; G0463

== ENCOUNTER 2025-04-05 14:52 | Outpatient (AMB) | payer MEDICAID, SELFPAY ==
--- NOTE | 2025-04-05 15:13 | PD.GSCLVISIT ---
Vital Signs - [facility] 04/05/25 15:14 Height 1.5 m Height Method Stated Weight 59.903 kg Weight Measurement Method Standing Scale BMI 26.6 BP 122/83 Blood Pressure Source Automatic Cuff Blood Pressure Location Left Upper Arm Position Sitting Respiration 19 Pulse 92 Pulse Source Monitor Temp 97.7 F Temp Source Temporal Artery Scan Pulse Oximetry (%) 98 Oxygen Delivery Method Room Air Med/Allergies Allergies & Medications Allergies No Known Allergies Allergy (Verified 04/05/25 15:15) Medication Reconciliation hydrocodone 5 mg-acetaminophen 325 mg tablet 1 tab PO Q6H PRN pain 06/30/24 [History Confirmed 04/05/25] lisinopril 20 mg-hydrochlorothiazide 25 mg tablet (Zestoretic) 1 tab PO QDAY 06/30/24 [History Confirmed 04/05/25] metformin 500 mg tablet 500 mg PO BID 06/30/24 [History Confirmed 04/05/25] naproxen 500 mg tablet 500 mg PO Q12H PRN pain 06/30/24 [History Confirmed 04/05/25] omega-3 fatty acids 1,000 mg PO QDAY 06/30/24 [History Confirmed 04/05/25] phentermine 37.5 mg capsule 37.5 mg PO QAM 06/30/24 [History Confirmed 04/05/25] polyethylene glycol 3350 17 gram/dose oral powder (Powderlax) 4 g PO QDAY 06/30/24 [History Confirmed 04/05/25] ibuprofen 600 mg tablet 600 mg PO Q6H PRN pain #30 tabs 07/01/24 [Rx Confirmed 04/05/25] oxycodone-acetaminophen 5 mg-325 mg tablet (Percocet) 1 tab PO Q6H PRN pain #30 tabs 07/13/24 [Rx Confirmed 04/05/25] hydrocortisone acetate 25 mg rectal suppository 25 mg [place] QHS #12 ea 07/16/24 [Rx Confirmed 04/05/25] metronidazole 1 % topical cream 1 applic topical QDAY perianal fistula #60 grams 08/24/24 [Rx Confirmed 04/05/25] mupirocin 2 % topical ointment 1 applic topical BID PRN perianal itching #22 grams 11/02/24 [Rx Confirmed 04/05/25] [place] Intake Visit Data Collection New Patient or Established: Established Patient (seen at [facility] within 3 years) Seen by Clinical Staff ONLY (RN/MA): No Reason for Visit:: F/U Pain Present Currently: No Pain Scale Used: Shrestha-Navarrete/Numerical Insole Taper Required: Yes PCP or OBGYN visit in last 3 months: Yes Hx Now: No Do You Feel Safe at Home: Yes Authorities Contacted: N/A Smoking Status Smoking Status: Never smoker Immunization / Flu Flu Vaccine in the Last 12 Months: Yes Flu Vaccine Exclusion Criteria: Already Received Past Medical History Past Medical History NEUROLOGIC: Negative Neurological Disorders or Seizures CARDIAC: Positive Cardiac Disorders and Hypertension; Negative Congestive Heart Failure RESPIRATORY: Negative Chronic Obstructive Pulmonary Disease (COPD) GASTROINTESTINAL: Positive Gastrointestinal Disorders and Hemorrhoids; Negative Hepatitis GENITOURINARY: Negative Genitourinary Disorders or Renal Disease REPRODUCTIVE: Positive Previous Pregnancies (5) ENDOCRINE: Negative Endocrine Disorders, Diabetes Mellitus Type 1 or Diabetes Mellitus Type 2 HEMATOLOGIC: Negative Blood Disorders OTHER HISTORY: Positive Hospitalization (); Negative Autoimmune Disease, Shingles, Blood Transfusions, Blood Transfusion Reaction, Anesthesia Reactions or Cancer Family History FAMILY HISTORY: Positive Family Cardiac Disorders; Negative Family Psychiatric Problems, Family Respiratory Disorders, Family Gastrointestinal Problems, Family Cancer, Family Surgery or Family Anesthesia Reaction Surgical History SURGICAL: Positive Tubal Ligation and Section (5) Social History SMOKING STATUS: Smoking status: Never smoker ALCOHOL: Alcohol Intake: Current HOUSING: Housing: House [facility] HPI Narrative HISTORY OF PRESENT ILLNESS I, Aracelis Arellano, have obtained verbal consent from the patient, to be recorded during this encounter which may include, but not limited to, medical history, examination, treatment plans, and relevant health information.? Patient was informed that recording will be read and reviewed by myself before inclusion in the medical chart. 44F with symptomatic hemorrhoids s/p colonoscopy, THD 07/01/24, course complicated by perianal abscess s/p I&D followed by perianal fistula since 08/2024 which pt has been managing as she preferred to wait before having another surgery.. She is accompanied by an official court interpreter. She reports persistent drainage from the fistula, with the volume varying daily. The drainage is occasionally accompanied by blood, causing discomfort. She describes the sensation as kelly to a burn. Additionally, she notes that the area around the fistula sometimes hardens, forming a small ball-like structure that alternates between hard and soft states. She has observed a small bump near her anus, which she suspects might be a polyp. This bump causes pain during wiping due to its proximity to the fistula. She maintains good hygiene, cleaning the area thoroughly and applying prescribed ointments, which provide some relief. She has not been using sitz baths recently. She has noticed that the area around the fistula becomes red and irritated during flare-ups. She does not experience constipation or diarrhea, and her stools are typically soft. She has not identified any specific pattern to her symptoms, noting that they can vary from day to day. She has been managing her bowel movements with a prescribed powder, which has been effective in producing loose stools. She has been using a towel to manage the drainage and has been able to keep it in place for most of the day. She has been avoiding using the restroom at work due to the cold weather, but she urinates early in the morning. 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 She is concerned about the potential impact of this on her condition. She is currently on standby at work due to inclement weather and is considering filing for unemployment. She is also contemplating whether to proceed with surgery or wait until after the holiday season. She had an ear infection about a month ago and went to her primary care physician. At that time, she was having pain and a lot of drainage and felt very irritated. She noticed that it was a little red, so her doctor told her that by taking the antibiotic, if she did have an infection in that area, it would also clear out the infection in her ear as well as the infection if it had developed in the fistula. ROS Review of Systems Systems Reviewed: All systems reviewed, normal except as documented Objective/Exam General General Appearance: alert, cooperative and well groomed Resp Respiratory exam: Absent respiratory distress Rectal Rectal exam: Present other (approx 1cm from the anal verge on the left there is an external fistula opening which is exquisitely tender, and adjacent to this there is a small white raised area also tender. Prolapsing internal hemorrhoids ) Assessment & Plan Diagnosis / Problem List (1) Perianal fistula: Status: Acute Assessment & Plan: 44F with symptomatic hemorrhoids s/p colonoscopy, THD 07/01/24, course complicated by perianal abscess s/p I&D followed by perianal fistulahere for follow up. A two-stage surgical intervention for the fistula has been discussed. The first stage involves inserting a rubber band through the fistula to keep it open, allowing for proper drainage and healing from the inside out. The second stage, scheduled once there is a significant reduction in drainage, involves removing the rubber band and excising the tissue holding it in place. Follow-up appointments will be scheduled every 6 weeks to monitor progress. While the surgery aims to resolve the issue, there is a possibility of recurrence. Good hygiene and continued use of prescribed ointments are advised. Return to work post-surgery is possible if severe pain is not experienced. Filing for unemployment or disability is an option based on preference. Plan: Pt prefers to have surgery either early Apr or early May with seton placement Office Procedures GNS Level of Care Nursing/Assessment Patient Status: Established Patient Nursing Assessment/Reassesment: Medication Reconciliation, Update PMH in EMR and Vital Signs Coordination of Care: Complex Care and Chronic Disease 1-5, Consent,records obtained, informed consent, Education Simp Pt/Fam, Results/Orders obtained and Staff clarify orders Special Needs: Language special needs Established Patient Charge Established Patient Point Assignment: 90 Established Patient Point Charge: EP Level 3 (80-115) Patient Portal Questionaires Social History Living Situation History Housing: House Tobacco History Smoking Status: Never smoker Alcohol History Alcohol Intake: Current Domestic Abuse History Do You Feel Safe at Home: Yes Review of Systems Report any current symptoms Only answer those that you have currently: Past Medical History Past Medical History Have you ever been diagnosed with any of the following: Neurological Problems Seizures: No Cardiology Problems Congestive Heart Failure: No Hypertension: Yes Respiratory Problems Chronic Obstructive Pulmonary Disease (COPD): No Stomache/Intestinal Problems Hepatitis: No Hemorrhoids: Yes Genital/Urinary Problems Renal Disease: No Reproductive Problems Previous Pregnancies: Yes (5) Endocrine Problems Diabetes Mellitus Type 1: No Diabetes Mellitus Type 2: No Other Problems Hospitalization: Yes () Autoimmune Disease: No Shingles: No Blood Transfusions: No Blood Transfusion Reaction: No Anesthesia Reactions: No Cancer: No
[2025-04-05 15:14] VITALS: BP 122/83; PULSE 92; RESP 19; TEMP 36.5; O2SAT 98; BMI 26.6
== END 2025-04-05 16:14 | disposition home or self-care (01) ==
LOC: HODSRG 14:52
PROVIDERS: PCP Nurse Practitioner Family; Referring Provider Nurse Practitioner Family; Supervising Provider Surgery; Visit Provider Surgery
DX: K60.30 Anal fistula, unspecified (principal); I10 Essential (primary) hypertension
CPT/HCPCS: 99213; G0463

== ENCOUNTER 2025-05-03 11:16 | Outpatient (AMB) | payer MEDICAID, SELFPAY ==
[2025-05-03 11:40] VITALS: BP 135/90; PULSE 78; RESP 16; TEMP 36; O2SAT 98; BMI 26.6
--- NOTE | 2025-05-03 11:40 | GSCOFFNT_ITS ---
Vital Signs - [facility] 05/03/25 11:40 Height 1.5 m Height Method Measured Weight 60.101 kg Weight Measurement Method Standing Scale BMI 26.6 BP 135/90 H Blood Pressure Source Automatic Cuff Blood Pressure Location Left Upper Arm Position Sitting Respiration 16 Pulse 78 Pulse Source Monitor Temp 96.8 F Temp Source Temporal Artery Scan Pulse Oximetry (%) 98 Oxygen Delivery Method Room Air Med/Allergies Allergies & Medications Allergies No Known Allergies Allergy (Verified 05/03/25 12:00) Medication Reconciliation hydrocodone 5 mg-acetaminophen 325 mg tablet 1 tab PO Q6H PRN pain 06/30/24 [History Confirmed 05/03/25] lisinopril 20 mg-hydrochlorothiazide 25 mg tablet (Zestoretic) 1 tab PO QDAY 06/30/24 [History Confirmed 05/03/25] metformin 500 mg tablet 500 mg PO BID 06/30/24 [History Confirmed 05/03/25] naproxen 500 mg tablet 500 mg PO Q12H PRN pain 06/30/24 [History Confirmed 05/03/25] omega-3 fatty acids 1,000 mg PO QDAY 06/30/24 [History Confirmed 05/03/25] phentermine 37.5 mg capsule 37.5 mg PO QAM 06/30/24 [History Confirmed 05/03/25] polyethylene glycol 3350 17 gram/dose oral powder (Powderlax) 4 g PO QDAY 06/30/24 [History Confirmed 05/03/25] ibuprofen 600 mg tablet 600 mg PO Q6H PRN pain #30 tabs 07/01/24 [Rx Confirmed 05/03/25] oxycodone-acetaminophen 5 mg-325 mg tablet (Percocet) 1 tab PO Q6H PRN pain #30 tabs 07/13/24 [Rx Confirmed 05/03/25] hydrocortisone acetate 25 mg rectal suppository 25 mg MO QHS #12 ea 07/16/24 [Rx Confirmed 05/03/25] metronidazole 1 % topical cream 1 applic topical QDAY perianal fistula #60 grams 08/24/24 [Rx Confirmed 05/03/25] mupirocin 2 % topical ointment 1 applic topical BID PRN perianal itching #22 grams 11/02/24 [Rx Confirmed 05/03/25] OK Intake Visit Data Collection New Patient or Established: Established Patient (seen at [facility] within 3 years) Seen by Clinical Staff ONLY (RN/MA): No Reason for Visit:: PRE OP EUA & SETON PLACEMENT Pain Present Currently: No Pain Scale Used: Shrestha-Navarrete/Numerical Sash Assembler Required: No PCP or OBGYN visit in last 3 months: Yes Hx Now: No Do You Feel Safe at Home: Yes Authorities Contacted: N/A Smoking Status Smoking Status: Never smoker Immunization / Flu Flu Vaccine in the Last 12 Months: No Flu Vaccine Exclusion Criteria: Already Received Past Medical History Past Medical History NEUROLOGIC: Negative Neurological Disorders or Seizures CARDIAC: Positive Cardiac Disorders and Hypertension; Negative Congestive Heart Failure RESPIRATORY: Negative Chronic Obstructive Pulmonary Disease (COPD) GASTROINTESTINAL: Positive Gastrointestinal Disorders and Hemorrhoids; Negative Hepatitis GENITOURINARY: Negative Genitourinary Disorders or Renal Disease REPRODUCTIVE: Positive Previous Pregnancies (5) ENDOCRINE: Negative Endocrine Disorders, Diabetes Mellitus Type 1 or Diabetes Mellitus Type 2 HEMATOLOGIC: Negative Blood Disorders OTHER HISTORY: Positive Hospitalization (); Negative Autoimmune Disease, Shingles, Blood Transfusions, Blood Transfusion Reaction, Anesthesia Reactions or Cancer Family History FAMILY HISTORY: Positive Family Cardiac Disorders; Negative Family Psychiatric Problems, Family Respiratory Disorders, Family Gastrointestinal Problems, Family Cancer, Family Surgery or Family Anesthesia Reaction Surgical History SURGICAL: Positive Tubal Ligation and Section (5) Social History SMOKING STATUS: Smoking status: Never smoker ALCOHOL: Alcohol Intake: Current HOUSING: Housing: [facility] Narrative 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 Patient reports she continues to have drainage from the perianal fistula, and she recently had a flareup of pain which she relates to a heavy menstrual period. Bowel movements remain soft and regular without any straining and she denies any other changes to her health ROS Review of Systems Systems Reviewed: All systems reviewed, normal except as documented Objective/Exam General General Appearance: alert, cooperative and well groomed Resp Respiratory exam: Absent respiratory distress Assessment & Plan Diagnosis / Problem List (1) Perianal fistula: Status: Acute Assessment & Plan: 45F with symptomatic hemorrhoids s/p colonoscopy, D 07/01/24, course complicated by perianal abscess s/p I&D followed by perianal fistula, who preferred to defer surgery now planned for EUA with seton placement. All questions were answered and pt is agreeable to proceeding Office Procedures GNS Level of Care Nursing/Assessment Patient Status: Established Patient Nursing Assessment/Reassesment: Medication Reconciliation, Update PMH in EMR and Vital Signs Coordination of Care: Complex Care and Chronic Disease 1-5, Education Complex Pt/Fam, Consent,records obtained, informed consent, Results/Orders obtained and Staff clarify orders Special Needs: Language special needs Established Patient Charge Established Patient Point Assignment: 95 Established Patient Point Charge: EP Level 3 (80-115) Patient Portal Questionaires Social History Living Situation History Housing: House Tobacco History Smoking Status: Never smoker Alcohol History Alcohol Intake: Current Domestic Abuse History Do You Feel Safe at Home: Yes Review of Systems Report any current symptoms Only answer those that you have currently: Past Medical History Past Medical History Have you ever been diagnosed with any of the following: Neurological Problems Seizures: No Cardiology Problems Congestive Heart Failure: No Hypertension: Yes Respiratory Problems Chronic Obstructive Pulmonary Disease (COPD): No Stomache/Intestinal Problems Hepatitis: No Hemorrhoids: Yes Genital/Urinary Problems Renal Disease: No Reproductive Problems Previous Pregnancies: Yes (5) Endocrine Problems Diabetes Mellitus Type 1: No Diabetes Mellitus Type 2: No Other Problems Hospitalization: Yes () Autoimmune Disease: No Shingles: No Blood Transfusions: No Blood Transfusion Reaction: No Anesthesia Reactions: No Cancer: No
== END 2025-05-03 11:55 | disposition home or self-care (01) ==
LOC: HODSRG 11:16
PROVIDERS: PCP Nurse Practitioner Family; Referring Provider Nurse Practitioner Family; Supervising Provider Surgery; Visit Provider Surgery
DX: K60.30 Anal fistula, unspecified (principal); K64.9 Unspecified hemorrhoids
CPT/HCPCS: 99213; G0463